=== PATIENT | female | born 1945 | race Caucasian/White ===

== ENCOUNTER 2022-02-28 10:00 | Outpatient (RCR) | payer MEDICARE, SELFPAY ==
--- NOTE | 2022-01-31 10:17 | PTOPEVAL ---
PHYSICAL THERAPY INITIAL EVALUATION. Thank you for referring Malina Amin to [facility].? The patient is scheduled to be seen for therapy? 1 x/week for 4 weeks. Please review, sign, date and return this plan of care RAMA. I agree with and certify that the following plan of care is medically necessary. Referring Physician Date Attending Provider: Tom Sahni MD *PT Outpatient Evaluation Start: 01/31/22 Evaluation Information Diagnosis Osteoarthritis Onset 2 years Subjective Information Pt states she has some pain in Query Text:As Reported By Patient/ her L knee mostly in the back Family and deep. She states one of her doctors told her she has a Dao's cyst and another told her she has osteoporosis. She received an injection from her PCP on 01/22/22 and it has helped a little bit and she has more movement because of less pain. Pt states most of her pain happened when she goes up/down stairs. Pt states she can walk or stand as long as she needs. Her primary complaint is pain on the stairs and not being able to bend it all the way if she has to bend over to pick something up. Pain Assessment Self Report Pain Assessment Left Knee(s) Reported Pain Level 0 Pain Frequency Chronic,Intermittent Lowest Pain Intensity 0 Greatest Pain Intensity 3 Pain Aggravating Factors Bending,Stair Climbing Lower Extremity Range of Motion General Lower Extremity Range of Motion WFL/Left,WFL/Right Knee Range of Motion Right Knee Flexion Range of Motion - Active 136 Knee Extension Range of Motion - Active 0 Left Knee Flexion Range of Motion - Active 116 Knee Extension Range of Motion - Active 0 Lower Extremity Muscle Strength Testing General Lower Extremity Strength WFL/Left,WFL/Right Gross Lower Extremity Strength B LE grossly 4-/5 B hip extension 2/5 L knee extension 3+/5 L knee flexion 4-/5 B glute med 3/5 Muscle Length Testing Left Hamstring Length -38 Right Hamstring Length -40 Gastrocnemius Length (R) WFL,(L) WFL Palpation Assessment Palpation Posterior knee and medial and lateral knee joint line Balance Assess
--- NOTE | 2022-02-14 11:02 | PCPTNOTE ---
Patient called & cancelled scheduled appointment this date. No reason left.
--- NOTE | 2022-02-28 10:33 | PTOPEVAL ---
PHYSICAL THERAPY PROGRESS NOTE AND DISCHARGE REPORT. Thank you for referring Malina Amin to [facility].? The patient is to be discharged from skilled physical therapy services at this time. Please review, sign, date and return this plan of care RAMA. I agree with and certify that the following plan of care is medically necessary. Referring Physician Date Attending Provider: Tom Sahni MD Evaluation Information Diagnosis Osteoarthritis Onset 2 years Subjective Information Pt states her knees are doing Query Text:As Reported By Patient/ much better. She declines pain Family and muscle spasms for at least the last week. Pain Assessment Left Knee(s) Reported Pain Level 0 Greatest Pain Intensity 0 Lower Extremity Range of Motion General Lower Extremity Range of Motion WFL/Left,WFL/Right Knee Range of Motion Right Knee Flexion Range of Motion - Active 136 Knee Extension Range of Motion - Active 0 Left Reason Not Measured Pain Knee Flexion Range of Motion - Active 118 Knee Extension Range of Motion - Active 0 Lower Extremity Muscle Strength Testing General Lower Extremity Strength WFL/Left,WFL/Right Gross Lower Extremity Strength B LE grossly 4/5 B hip extension 4/5 B glute med 3+/5 Muscle Length Testing Muscle Length Testing Left Hamstring Length -38 Right Hamstring Length -40 Gastrocnemius Length (R) WFL,(L) WFL Balance Assessment 5 Time Sit to Stand Time in Seconds 15 Gait Assessment Gait Pattern No Deviations/Normal Other Gait Observations No major gait deviations, slightly increased pelvic rotation during gait PT Clinical Summary Malina presents to therapy today for her progress report following participation in a home exercise program and 3 therapy visits. Today she demonstrates improvements in her LE strength, mechanics and functional mobility. She has been able to return to her daily walking program without an increase in pain. She is to be discharged from skilled physical therapy services at this time to continue with her HEP. She was educated on the benefits of continuing with her HEP even upon discharge,
== END 2022-02-28 15:10 | disposition home or self-care (01) ==
LOC: ANHPT 10:00
PROVIDERS: PCP Internal Medicine; Visit Provider Orthopaedic Surgery
DX: M19.90 Unspecified osteoarthritis, unspecified site (principal)
CPT/HCPCS: 97110; 97112; 97161

== ENCOUNTER → 2022-03-25 07:50 | Outpatient (CLI) | payer MEDICARE, SELFPAY ==
--- NOTE | ~2022-03-25 | MR_ITS ---
EXAMINATION: MR knee LT wo con DATE: 03/25/2022 08:23 INDICATION: Left knee pain TECHNIQUE: Magnetic resonance imaging (MRI) of the left knee was performed without intravenous contra st. Sequences included coronal PD-weighted FSE, coronal PD-weighted FS FSE, sagittal T2-weighted FSE , sagittal PD-weighted FS FSE and axial PD weighted fat saturated FSE. COMPARISON: None. FINDINGS: Medial compartment: Medial meniscal tear with longitudinal horizontal tear plane extending to the inferior articular surf yvonne of the posterior body and posterior horn of the medial meniscus. The tear may be complex with sug gestion of possible radial component to the tear involving the inner half of the meniscal body and an terior aspect of the horizontal tear plane. Partial-thickness cartilage loss with chondral surface ir regularity along the anterior to central weightbearing medial femoral condyle and medial side of the medial tibial plateau. No degenerative subchondral changes. Lateral compartment: Small radial tear involving the inner half of the body of the lateral meniscus. Articular cartilage i s normal. Patellofemoral compartment: Deep chondral ulceration with underlying subarticular edema-like signal change at the cephalad aspect of the patellar apical ridge and caudal half of the lateral trochlea. Additional deep chondral ulcer ation without degenerative subchondral changes at the medial patellar facet and caudal half of the tr ochlear groove. Ligaments and tendons: Anterior and posterior cruciate ligaments are normal. Mild thickening and mild increased signal of th e proximal medial collateral ligament without surrounding edema to suggest acute injury consistent wi th mild scarring related to chronic sprain. The fibular collateral ligament is normal. Mild tendinopa thy at the femoral insertion of the popliteus tendon. Mild distal quadriceps tendinopathy without dis crete tear. Patellar tendon is normal. The visualized medial and lateral hamstring tendons as well as the iliotibial band are normal. Fluid: Physiologic amount of fluid in the joint space. No loose osteochondral bodies identified. Multilocula marisol ganglion cyst at the deep popliteal recess along the posterior margin of the posterior cruciate l igament which measures 3.9 cm craniocaudally by 2.0 x 2.3 cm in maximal orthogonal dimensions. Osseous/other: Likely degenerative mild cystic change at the posterior aspect of the intercondylar eminence near the insertion of the posterior cruciate ligament and posterior root of the lateral meniscus. Aside from the previous noted degenerative subchondral edema there is normal marrow signal with no fracture or p athologic marrow replacing process. No fracture or pathologic marrow replacing process. IMPRESSION: 1. Likely complex tear at the body and posterior horn of the medial meniscus and small radial tear at the body of the lateral meniscus. 2. Mild tricompartmental osteoarthritis with moderate grade chondromalacia in the medial compartment and moderate and high-grade chondromalacia in the patellofemoral compartment. 3. 3.9 x 2.0 x 2.3 cm multiloculated ganglion cyst at the deep popliteal recess. 4. Mild quadriceps and popliteal tendinopathy without discrete tears. 5. Mild scarring at the proximal medial collateral ligament likely sequela of chronic sprain. Reviewed, dictated and finalized at location A. IMPRESSION: 1. Likely complex tear at the body and posterior horn of the medial meniscus an d small radial tear at the body of the lateral meniscus. 2. Mild tricompartmental osteoarthritis with moderate grade chondromalacia in t he medial compartment and moderate and high-grade chondromalacia in the patello femoral compartment. 3. 3.9 x 2.0 x 2.3 cm mu
== END ==
PROVIDERS: PCP Internal Medicine; Visit Provider Orthopaedic Surgery
DX: M17.12 Unilateral primary osteoarthritis, left knee (principal); S83.282A Other tear of lateral meniscus, current injury, left knee, initial encounter; S83.242A Other tear of medial meniscus, current injury, left knee, initial encounter; M25.862 Other specified joint disorders, left knee
CPT/HCPCS: 73721

== ENCOUNTER 2022-04-22 07:47 | Outpatient (CLI) | payer MEDICARE, SELFPAY ==
--- NOTE | 2022-04-22 07:55 | ECG_ITS ---
Measurements Intervals [place] Rate: 64 P: 35 NE: 181 QRS: 45 QRSD: 89 T: 63 QT: 389 QTc: 404 Interpretive Statements SINUS RHYTHM ST-T ABNORMALITY-CONSIDER ISCHEMIA Electronically Signed On 04-22-2022 11:15:12 CDT by Hermelindo Pham M.D.
[2022-04-22 10:38] LABS: Anion Gap 7 mmol/L (8-16); Blood Urea Nitrogen 16 mg/dL (7-17); Calcium 9.4 mg/dL (8.4-10.2); Carbon Dioxide 27 mmol/L (22-30); Chloride 105 mmol/L (98-107); Estimated Glomerular Filt Rate 54; Glucose 111 mg/dL (65-110); Potassium 3.4 mmol/L (3.4-5.0); Sodium 139 mmol/L (137-145)
== END 2022-04-22 07:48 | disposition home or self-care (01) ==
PROVIDERS: Anesthesiology; PCP Internal Medicine; Visit Provider Orthopaedic Surgery
DX: Z01.818 Encounter for other preprocedural examination (principal); I10 Essential (primary) hypertension; Z51.81 Encounter for therapeutic drug level monitoring
CPT/HCPCS: 36415; 80048; 93005

== ENCOUNTER 2022-05-06 00:22 | Day surgery (SDC) | payer MEDICARE, SELFPAY ==
[2022-04-18 14:00] VITALS: BMI 22.8
--- NOTE | 2022-04-18 14:25 | PC.NURSE ---
Report to the Outpatient Waiting Room, entrance under the green pavilion located off [facility], at time __8:30AM on date _04/28/22 . OR Time: __10:30AM . - You and your visitor will be asked a series of questions to screen for COVID 19 for your protection. - Only one visitor is allowed at this time. - The patient visitor is requested to leave or wait in car when not with patient. - A mask is required within the hospital. Patients may have clear liquids (water, carbonated beverages, clear teas, apple juice) until 3 hours prior to surgery with a maximum of 20 ounces. - No food from midnight until time of surgery - Infants may have breast milk until 4 hours before surgery, infant formula 6 hours prior to surgery. - Children will be allowed to drink immediately following surgery. If applicable, please bring a bottle or sippy cup to assist with drinking. Juice, water, soda, and popsicles are readily available. For infants on formula, please bring formula the day of surgery. Pacifiers are allowed. Take the following medications with a SIP of water the morning of surgery: ____NONE Medications to discontinue per physician __HOLD ALL VITAMINS/SUPPLEMENTS 3 DAYS PRE-OP Date to take last dose____04/24/22 Please no make-up, nail malian, hairspray, perfume, deodorant, or body powder the day of surgery. No jewelry (including any body piercings) or valuables the day of surgery, leave them at home. Please take a shower or bath the night before, or the morning of, surgery with an antibacterial soap. Wear comfortable, loose fitting clothing. Children are encouraged to wear pajamas. - Jewelry must be removed prior to entering the operating room. Rings and piercings that are not removed may be cut off. - The hospital will not accept responsibility for valuables. - Please leave all valuables, including medications, at home the day of surgery. If you are going home after surgery, a licensed transport truck driver must drive you home. - NO public transportation without another adult. - We recommend that an adult stay with you for 24 hours following discharge. - We also recommend that you do not drive, make important decision, drink alcoholic beverages, or take any drugs that were not prescribed by your health care provider for at least 24 hours after your discharge time. For Pediatric surgeries, we recommend two adults accompany the child home (only one inside the building at this time). Follow any additional instructions given to you from your surgeon. If you or anyone in your household have experienced Covid symptoms in the past week, please notify your surgeon or the nurse liaison at the phone number below for possible testing. Telephone instructions given to __PATIENT and asked if any additional questions and then verbalized understanding. Patient advised to call surgeon office or pre surgery nurse liaison [phone] if any additional questions.
--- NOTE | 2022-05-01 13:49 | PC.NURSE ---
Report to the Outpatient Waiting Room, entrance under the green pavilion located off [facility], at time _8:30AM on date __05/06/22 . OR Time: __10:30AM . - You and your visitor will be asked a series of questions to screen for COVID 19 for your protection. - Only one visitor is allowed at this time. - The patient visitor is requested to leave or wait in car when not with patient. - A mask is required within the hospital. Patients may have clear liquids (water, carbonated beverages, clear teas, apple juice) until 3 hours prior to surgery with a maximum of 20 ounces. - No food from midnight until time of surgery - Infants may have breast milk until 4 hours before surgery, infant formula 6 hours prior to surgery. - Children will be allowed to drink immediately following surgery. If applicable, please bring a bottle or sippy cup to assist with drinking. Juice, water, soda, and popsicles are readily available. For infants on formula, please bring formula the day of surgery. Pacifiers are allowed. Take the following medications with a SIP of water the morning of surgery: ___NONE Medications to discontinue per physician ____HOLD ALL VITAMINS/SUPPLEMENTS 3 DAYS PRE-OP Date to take last dose__05/02/22 Please no make-up, nail setswana, hairspray, perfume, deodorant, or body powder the day of surgery. No jewelry (including any body piercings) or valuables the day of surgery, leave them at home. Please take a shower or bath the night before, or the morning of, surgery with an antibacterial soap. Wear comfortable, loose fitting clothing. Children are encouraged to wear pajamas. - Jewelry must be removed prior to entering the operating room. Rings and piercings that are not removed may be cut off. - The hospital will not accept responsibility for valuables. - Please leave all valuables, including medications, at home the day of surgery. If you are going home after surgery, a licensed ambulette driver must drive you home. - NO public transportation without another adult. - We recommend that an adult stay with you for 24 hours following discharge. - We also recommend that you do not drive, make important decision, drink alcoholic beverages, or take any drugs that were not prescribed by your health care provider for at least 24 hours after your discharge time. For Pediatric surgeries, we recommend two adults accompany the child home (only one inside the building at this time). Follow any additional instructions given to you from your surgeon. If you or anyone in your household have experienced Covid symptoms in the past week, please notify your surgeon or the nurse liaison at the phone number below for possible testing. Telephone instructions given to __PATIENT and asked if any additional questions and then verbalized understanding. Patient advised to call surgeon office or pre surgery nurse liaison [phone] if any additional questions.
--- NOTE | 2022-05-05 12:34 | WPDANESEPPF ---
Anes - Initial Pre Proc Eval Procedure: Operation Date: 05/06/22 10:30 Proposed Procedures p Left Knee Arthroscopy with Meniscectomy, Proceed as Indicated - Tom Sahni MD Date/Time: 05/05/22 12:34 Surgeon: Tom Sahni MD Pre Op Diagnosis: left knee medial meniscal tear Patient Data Age: 76 Gender: F Height: 1.7 m Weight: 66 kg Allergies Allergy/AdvReac Type Severity Reaction Status Date / Time codeine Allergy Intermediate Chest Pain Verified 05/06/22 09:28 Home Medications Medication Instructions Recorded Confirmed Type alendronate 70 mg tablet (Fosamax) 70 mg PO WEEKLY 01/22/22 05/01/22 History atorvastatin 40 mg tablet 40 mg PO DAILY 01/22/22 05/01/22 History hydrochlorothiazide 12.5 mg tablet 12.5 mg PO HS 01/22/22 05/01/22 History lisinopril 40 mg tablet 40 mg PO HS 01/22/22 05/01/22 History cetirizine 10 mg tablet (Zyrtec) 10 mg PO DAILY PRN Congestion 03/13/22 05/01/22 History calcium carbonate 600 mg-vitamin 2 tablet PO DAILY 04/18/22 05/01/22 History D3 5 mcg (200 unit) tablet cyanocobalamin (vitamin B-12) 1,000 mcg subcut MONTHLY 04/18/22 05/01/22 History 1,000 mcg/mL injection solution Patient hx anesthesia problems: none Family hx anesthesia problems: none Results Review: All pre-operative results and documents have been reviewed as part of the pre-operative evaluation. [facility] Past Medical History Medical History (Updated 05/05/22 @ 12:34 by Jay Grace DO) Allergies Anemia History of trigger finger Hyperlipidemia Hypertension Left knee pain Osteoporosis Tear of medial meniscus of left knee Surgical History Surgical History (Updated 05/05/22 @ 12:34 by Jay Grace DO) History of tubal ligation Family History Family History Sibling Diabetes mellitus Family history of malignant neoplasm Social History Social History Smoking packs per day: 1 Smoking cigarettes per day: 20.0 Years smoked: 60 Smoking pack-years: 60.00 Smoking status: Current every day smoker Tobacco type: cigarettes Additional smoking assessment comments: REDUCING SMOKING TO 1/2 PACK/DAY RECENTLY Alcohol intake: never Substance use: never Living arrangements: with family Additional living arrangements comments: HUSB, DAUGHTER AND GRANDCHILDREN Spiritual care concerns: No Anes - Eval Final PreProcedure Day of Procedure 05/05/22 12:34 Patient weight: normal Heart: regular rate and rhythm Lungs: clear to auscultation Airway: Mallampati scale class II Neurological: alert and oriented Last oral intake: >/= 8 hours ASA classification: III Emergent: no Anesthetic plan: proceed Anesthesia type and monitoring: general LMA and standard monitoring Results Review: All pre-operative results and documents have been reviewed as part of the pre-operative evaluation. Informed Consent: The patient's anesthetic plan and its attendant risks and benefits were discussed with the patient/family/POA. Questions were solicited and answers provided to the satisfaction of the patient/family/POA.
[2022-05-06] VITALS (10 sets, daily range): BP systolic 100–162; BP diastolic 58–73; PULSE 64–91; RESP 16–20; TEMP 36.6–36.8; O2SAT 93–100
[2022-05-06] MEDS: LACTATED RINGERS 1,000 ML 30 ML IV CONT (09:00)
[2022-05-06] MEDS: KETOROLAC 15 MG/ML VIAL (*BKC) IV PUSH (09:00)
[2022-05-06] MEDS: ACETAMINOPHEN 500 MG TABLET 1000 MG PO (09:00)
--- NOTE | 2022-05-06 09:49 | WPDHPUPDATE1 ---
History and Physical Update Update Date/Time: 05/06/22 09:49 History and Physical has been reviewed, including an updated exam of the patient. There are NO changes in the patient's condition. Risks, benefits, and alternatives have been discussed and questions answered. Patient agrees to proceed with procedure.
[2022-05-06] MEDS: ceFAZolin 2 GM/D5W 50 ML 2 GM/50 ML BAG IVPB (10:44)
--- NOTE | 2022-05-06 12:03 | W.PM.PROC2 ---
Procedure Note - Detailed Date of Procedure 05/06/22 Pre-op Diagnosis left knee medial meniscal tear with synovial cysts Post-op Diagnosis Other (Medial and lateral meniscal tears with synovial cysts) Procedure Performed Left knee arthroscopy, partial mediolateral meniscectomy and extensive synovectomy Surgeon Tom Sahni MD Anesthesia General Description of Procedure The patient was identified and proper site identified and then she was taken to the operating room, transferred to the OR table placing her supine taking care to pad the torso and extremities. After general anesthetic induction and intubation, a nonsterile tourniquet was placed high on the left thigh but was not used The left lower extremity was positioned, prepped and draped in usual sterile fashion. 10 cc of 1% lidocaine was injected into the subcutaneous tissue in the area of the portals at start of the procedure, and an additional 10 at the end. The portals were established and the arthroscopy was carried out. Articular cartilage in all three compartments showed grade 2 changes with fraying, most pronounced medially. There was complex tearing of the medial meniscus posterior horn into the midbody as well as the central portion of the lateral meniscus. These areas were debrided with basket forceps and a shaver back to stable rim. In the notch there were multilobulated synovial cyst adjacent to the lateral wall which were freely mobile. These were debrided with the shaver. 70 degree scope was placed past the notch to examine the posteromedial posterolateral aspects of the knee and other than mild synovitis these areas were fairly clear. ArthroCare Wand was used for hemostasis. The knee was flushed with a copious amount of arthroscopic fluid and equipment was removed. Portals were closed with three O nylon suture and a sterile dressing was applied. She tolerated the procedure well, was awakened, extubated and taken to recovery area in stable condition. There were no known intraoperative complications. Estimated blood loss was negligible; she received perioperative antibiotics. Estimated Blood Loss -20.0 Tourniquet Time 0 Drains No Packing No Pathology None sent Complications No immediate complications Condition Stable Disposition PACU
--- NOTE | 2022-05-06 12:06 | SUR.PHASEI ---
oral airway removed at 1206
[2022-05-06] MEDS: traMADol HCL (*CRX) 50 MG TABLET PO (13:20)
== END 2022-05-06 14:05 | disposition home or self-care (01) ==
PROVIDERS: PCP Internal Medicine; Visit Provider Orthopaedic Surgery
PROC: (CPT 29870; principal; 2022-05-06 10:30)
DX: M23.322 Other meniscus derangements, posterior horn of medial meniscus, left knee (principal); M23.362 Other meniscus derangements, other lateral meniscus, left knee; M65.862 Other synovitis and tenosynovitis, left lower leg; I10 Essential (primary) hypertension; E78.5 Hyperlipidemia, unspecified; M81.0 Age-related osteoporosis without current pathological fracture; F17.210 Nicotine dependence, cigarettes, uncomplicated
CPT/HCPCS: 29880; 36415; 80048; 93005; A9270; J0690; J1100; J1885; J2405; J2704; J3010; J7120

== ENCOUNTER 2022-06-04 15:30 | Outpatient (RCR) | payer MEDICARE, SELFPAY ==
--- NOTE | 2022-05-09 09:45 | PTOPEVAL ---
PHYSICAL THERAPY INITIAL EVALUATION. Thank you for referring Malina Amin to [facility].? The patient is scheduled to be seen for therapy? 2x/week for 4 weeks. Please review, sign, date and return this plan of care RAMA. I agree with and certify that the following plan of care is medically necessary. Referring Physician Date Attending Provider: Tom Sahni MD *PT Outpatient Evaluation Start: 05/09/22 Evaluation Information Diagnosis L knee arthroscope Onset 05/06/22 Subjective Information Pt states she had a knee scope Query Text:As Reported By Patient/ on 05/06, she reports she used Family the walker for 3 days and stopped using it yesterday. She states her pain is well controlled. She reports she has been icing her knee frequently. Pain Assessment Left Knee(s) Reported Pain Level 3 Pain Frequency Acute,Intermittent Greatest Pain Intensity 3 Lower Extremity Range of Motion Gross Lower Extremity Range of Motion R knee active flexion 0-140 Comments L knee active extension -8 L knee active flexion 82 L knee passive flexion 95 Lower Extremity Muscle Strength Testing General Lower Extremity Strength Gross Lower Extremity Strength R LE grossly 4+/5 L knee long arc quad: -28 deg knee extension lag Palpation Assessment Palpation distal quad Balance Assessment Timed Up and Go Test (TUG) (Seconds) 11 Assistive Devices None 5 Time Sit to Stand Time in Seconds 15 5 Time Sit to Stand Comments without use of UEs, LLE placed anteriorly Gait Assessment Ambulation Assistive Devices None Gait Pattern Ataxic Gait,Circumducted Gait Gait Pattern Observed Decreased Weight Shift - Left, Hip Hike - Left Other Gait Observations decreased knee flexion on L with subsequent L hip hike and mild hip circumduction 2 Minute Walk Total Distance Walked (feet) 410 2 Minute Walk Gait Speed Score (feet/sec) 3.41 Stair Climbing Assessment Stair Climbing Assistive Devices Railings Technique Alternating Steps Stair Climbing Direction Both Up and Down Stair Climbing Comments ascends and descend with a reciprocal pattern. Demonstrates L LE circumduction during ascend and L hip IR during descent ( slightly sidewa
--- NOTE | 2022-06-02 09:20 | PCPTNOTE ---
Patient called & cancelled scheduled appointment this date due to being sick.
--- NOTE | 2022-06-04 15:59 | PTOPEVAL ---
PHYSICAL THERAPY PROGRESS REPORT AND DISCHARGE SUMMARY. Thank you for referring Malina Amin to [facility].? The patient is to be discharged from skilled therapy services at this time. Please review, sign, date and return this plan of care RAMA. I agree with and certify that the following plan of care is medically necessary. Referring Physician Date Attending Provider: Tom Sahni MD Evaluation Information Diagnosis L knee arthroscope Onset 05/06/22 Subjective Information Pt states her knee is doing Query Text:As Reported By Patient/ great. She states the only Family time she can feel it is when she kneels on the ground. Pt states she is not limited in her ability to sit or walk d/t her knee. Pain Assessment Left Knee(s) Reported Pain Level 0 Greatest Pain Intensity 0 Lower Extremity Range of Motion Gross Lower Extremity Range of Motion R knee active flexion 0-140 Comments L knee active extension 0 L knee active flexion 114 L knee passive flexion 125 Lower Extremity Muscle Strength Testing Gross Lower Extremity Strength R LE grossly 4+/5 L knee long arc quad: -4 deg knee extension lag L knee flexion/extension 4/5 Palpation Assessment Palpation distal quad Balance Assessment Timed Up and Go Test (TUG) (Seconds) 9 Assistive Devices None Comments Initially: 11s without AD 06/04/22: 9s without AD 5 Time Sit to Stand Time in Seconds 15 5 Time Sit to Stand Comments Initially: 15s without use of Query Text:Normative Data: If Greater UEs, LLE placed anteriorly Than 15 Seconds, 74% Increase Risk for 06/04/22: 15s without the use Recurrent Falls of UEs, equal weight distribution Gait Assessment Ambulation Assistive Devices None Other Gait Observations equal weight distribution, step length, and stride length 2 Minute Walk 2 Minute Walk Test Comments Initially: 410ft (3.41ft/s) without AD 06/04/22: 485 (4.04ft/s) without AD Stair Climbing Assessment Technique Alternating Steps Stair Climbing Direction Both Up and Down Stair Climbing Comments ascends and descends with proper technique of reciprocal pattern, mild hip ext rot when reaching for lower step Safety Assessment Factors Affecting Safety No Concerns
== END 2022-06-05 10:37 | disposition home or self-care (01) ==
LOC: ANHPT 15:30
PROVIDERS: PCP Internal Medicine; Visit Provider Orthopaedic Surgery
DX: Z48.89 Encounter for other specified surgical aftercare (principal); Z98.890 Other specified postprocedural states
CPT/HCPCS: 97110; 97161; 97530

== ENCOUNTER 2024-12-23 09:00 | Outpatient (CLI) | payer MEDICARE, SELFPAY ==
--- OUTSIDE RECORDS SUMMARY | 2024-12-23 09:22 | XMS_ITS | CONTINUITY OF CARE DOCUMENT ---
Author Name bennie avery Address Unknown Organization [facility] Address [address] [place] [address] Phone [phone] Care Team Providers Care Global Transportation Manager Name Role Phone Brant Welsh MD Unavailable POLLO PARIS MD Unavailable POLLO PARIS MD Unavailable [phone] PROBLEMS Condition Status Date Provider Notes Cardiology examination active Brant Welsh MD HYPERTENSION active Brant Welsh MD Hyperlipidemia active Brant Welsh MD Leg pain active Brant Welsh MD Osteoporosis active Brant Welsh MD Abnormal EKG active Brant Welsh MD Preoperative cardiovascular examination active Brant Welsh MD ENCOUNTERS Date Type Provider Location Encounter Diag nosis - In-person encounter Office Visit Brant Welsh MD [facility] Cardiology examinationHYPERTENSIONHyperlipidemiaLeg painOsteoporosisAbnormal EKGPreoperative cardiovascular examination VITAL SIGNS Date Observation Value Provider Body Mass Index (Ratio) 23.18 kg/m2 Colton Welsh MD blood pressure, cuff size regular Ke rri Petar blood pressure, diastolic 70 mm[Hg] Ke rri Petar blood pressure, systolic 142 mm[Hg] Hernandez Davey oxygen saturation, oximetry 96 % Honey Davey respiratory rate E&M 16 /min Honey Emeka luis pulse rate 70 /min Honey Morocho lder weight E&M 148 [lb_av] Honey Rashawn lder height E&M 67 [in_i] Honey dotsoner ALLERGIES Allergy Name Onset Date Reaction Criticality Status CODIENE High Criticality active HISTORY OF MEDICATION USE Medication Status Instructions Dates Provider Indications Com ments alendronate 70 mg tablet active Take 1 tablet by mouth once a week Honey Davey atorvastatin 40 mg tablet active Take 1 tablet by mouth once a day Honey Davey cyanocobalamin (vitamin B-12) 1,000 mcg/mL solution active Inject 1 ml intramuscularly every four weeks Honey Davey hydrochlorothiazide 12.5 mg capsule active Take 1 capsule by mouth once a day Honey Davey lisinopril 40 mg tablet active Take 1 tablet by mouth once a day Honey Davey SOCIAL HISTORY Date Observation Value Provider drug use no Brant Welsh MD alcohol use no Brant Welsh MD social history E&M S moking History: P atient currently smokes every day. P atient has been counseled to quit. Brant Welsh MD social history reviewed E&M revi ewed - no changes required Brant Welsh MD smoking/tobacco cess ation, patient education and counseling yes Brant Welsh MD number of years as a smoker 60 a Honey Davey smoking history, tot al pack/day 1/2 ppd Honey Davey cigarette use yes Honey salmon smoking status Current every day smoker K felix Davey INSURANCE PROVIDERS Payer name Policy type / Coverage type [employer] party ID [facility] MEDICARE COMPLETE HMO Other [id number] ADVANCE DIRECTIVES Name Date DISCUSSED - NO DECISION MADE TREATMENT PLAN Date Name Performer [id number],C, B P today: 142/70 Brant Welsh MD [id number],C,S chedule echo. Surgery scheduled for 05/05/22 Brant Welsh MD [id number],C,N on-specific STT wave changes. I think at this point I would just get an echo to make sure there are no wall motion abnormalities, but she should be able to proceed with artroscopic surgery. Brant Welsh MD Cardiology: B P today: 142/70 Brant Welsh MD Cardiology:Schedule echo. Surger y scheduled for 05/05/22 Brant Welsh MD Cardiology:Non-speci fic STT wave changes. I think at this point I would just get an echo to make sure there are no wall motion abnormalities, but she should be able to proceed with artroscopic surgery. Brant Welsh MD Date Name Complete Echo HISTORY OF PROCEDURES Procedure Date Procedure Name Provider Procedure Notes S tatus EKG Brant Welsh MD completed
--- OUTSIDE RECORDS SUMMARY | 2024-12-23 09:22 | XMS_ITS | Clinical Summary ---
Author Organization [facility] Address [address] [place] [address] Care Team Providers Care Net Wpf Developer Name Role Phone Unavailable Primary Care Provider Unavailabl e Immunizations Immunization Administration Dates Next Due Covid-19, Mrna, Lnp-s, Pf, 30 Mcg/0.3 Ml Dose (P fizer) 08/14/2021 Social History Tobacco Use Types Packs/Day Years Used Date Smoking Tobacco: Never Assessed Comments Unknown Sex and Gender Information Value Date Recorded Sex Assigned at Not on file Legal Sex Female 11:30 AM CDT Gender Identity Not on file Sexual Orientation Not on file Plan of Treatment Health Maintenance Due Date Last Done Comments DEXA Bone Density 1945 Hepatitis C Virus (HCV) Screening 1945 TdaP Immunization 1945 Pneumococcal Immunization (50+ years) (1 of 1 - PCV) 1996 Respiratory Syncytial Virus (RSV) Immunization (Adult) (1 - 1-dose 75+ series) 2021 Influenza Immunization (#1) 2024 09/0 05/2021, 08/11/2017, 07/31/2016, Additional history exists SARS-COV-2 Immunization ( season) 2024 08/14/2021, 02/06/2021 Zoster Immunization Completed 04/10/2018, 01/11/2018, 10/14/2013 Hepatitis B Immunization Aged Out No longer eligible based on patient's age to complete this topic Meningococcal Immunization (ACWY) Aged Out No longer eligible based on patient's age to complete this topic Rotavirus Immunization Aged Out No lo nger eligible based on patient's age to complete this topic
--- OUTSIDE RECORDS SUMMARY | 2024-12-23 09:22 | XMS_ITS | Data Portability ---
Author Organization [facility] [employer], Main Office Address [address] [place] [address] Care Team Providers Care Lead Solutions Architect Name Role Phone POLLO READ Primary Care Provider RAINA POLLO Referring Provider Assessment No assessment recorded. Plan of Treatment Reminders Order Date Submit Date Provider Last Modified By Organization Details Last Modified Time Details Appointments None recorded. Lab vitamin D, 25-hydroxy, total, serum 2022 023 [email or web address] [facility] Out[facility] Lab, [address] [place], [address], 3 09:52:09 lipid panel, serum 2022 023 [facility] Outpatient Lab, [address] [place], [address], 3 14:52:08 TSH, serum or plasma 2022 023 [facility] Out[facility] Lab, [address] [place], [address], 3 15:20:28 T4, free, serum 2022 023 [facility] Out[facility] Lab, [address] [place], [address], 3 15:04:31 CBC w/ auto diff 2022 023 [facility] Lab, [address] [place], [address], 3 14:49:48 CMP, serum or plasma 2022 023 [facility] Lab, [address] [place], [address], 3 14:52:04 vitamin B12, serum 2022 023 [facility] Lab, [address] [place], [address], 3 15:43:01 CBC w/ auto diff 2023 024 [facility] Out[facility] Lab, [address] [place], [address], 4 17:14:48 CMP, serum or plasma 2023 024 [facility] Out[facility] Lab, [address] [place], [address], 4 17:49:12 lipid panel, serum 2023 024 [facility] Out[facility] Lab, [address] [place], [address], 4 17:49:15 TSH, serum or plasma 2023 024 [facility] Lab, [address] [place], [address], 4 18:12:07 T4, free, serum 2023 024 [facility] Out[facility] Lab, [address] [place], [address], 4 18:06:50 vitamin B12, serum [address] Outpatient Lab, [address] [place], [address], 5 11:22:42 lipid panel, serum [address] Outpatient Lab, [address] [place], [address], 5 11:22:41 CMP, serum or plasma [address] Outpatient Lab, [address] [place], [address], 5 11:22:41 T4, free, serum [address] Outpatient Lab, [address] [place], [address], 5 11:22:41 TSH, serum or plasma [address] Lab, [address] [place], [address], 5 11:22:42 CBC w/ auto diff [address] Lab, [address] [place], [address], 5 11:22:42 Referral None recorded. Procedures None recorded. Surgeries None recorded. Imaging None recorded. Medication Orders benzonatate 200 mg capsule [email or web address] [place] [address] Pharmacy [facility], [address] [place] [address], [address], 5 11:12:20 amoxicillin 500 mg capsule 2024 025 [facility], [address] [place] [address], [address], 5 11:18:10 Patient TargetsNo targets recorded. Patient Instructions Encounter Date Encounter Id Patient Instructions Last Modified By Organization Details Last Modified Time 02/25/2023 [id number] Follow-up hypertension-hyper lipidemia- peripheral vascular disease- cirrhosis -neuropathy. All clinically stable. Will check blood work in the form of CBC, CMP, lipid, thyroid and B12 level. Will also check a vitamin-D level because of the history of osteoporosis. Otherwise seems to be doing well. Will continue on current Rx. Has several skin lesions which may have changed somewhat in color. She has a number of seborrheic changes noted. Will set up with Dermatology for further evaluation of the any skin lesions. Dermatology consult for multiple pigmented lesion [email or web address] Not available 02/25/2023 11:33:40 06/24/2023 [id number] Follow-up hypertension -hyperlipidemia -peripheral vascular disease all clinically stable. Will need blood work on next visit. Does need a low-dose CT scan of the chest. Is up-to-date on immunizations and colonoscopy. Follow-up in six months Low-dose CT scan of the chest [email or web address] Not available 06/24/2023 11:49:24 12/23/2023 [id number] Follow-up hypertension, hyperlipidemia and peripheral vascular disease all clinically stable. No interval complaints of any new problems. Check blood work in the form of CBC, CMP, lipid, thyroid and vitamin-D level. Continue on current Rx follow-up in six months. Portions of the record may have been created with voice recognition software. Occasional wrong-word or s ound-a-like substitutions may have occurred due to the inherent limitations of voice recognition software. Read the chart carefully and recognize, using context, where substitutions have occurred. [email or web address] Not available 12/23/2023 11:28:00 06/22/2024 [id number] Follow-up for hypertension, hyperlipidemia, osteoporosis all clinically stable. Will check blood work consisting of CBC, CMP, lipid, thyroid. Continue on current Rx follow-up in six months Additional Orders and/or Directives: 1. Bone density scan 2. Mammogram Next Appointment: 6 Months Approximate Date: 12/19/2024 Portions of the record may have been created with voice recognition software. Occasional wrong-word or s ound-a-like substitutions may have occurred due to the inherent limitations of voice recognition software. Read the chart carefully and recognize, using context, where substitutions have occurred. [email or web address] Not available 06/22/2024 11:49:26 12/21/2024 [id number] Essential hypertension, hyperlipidemia, pernicious anemia, osteoporosis and acute sinusitis. Plan to obtain blood work consisting of CBC, CMP, lipid, thyroid, B12 level. Will call in some amoxicillin 500 mg t.i.d. For the sinus congestion infection. If no improvement may need ENT referral. States that she has had some problems with tinnitus intermittently. Her ears. To be fairly clear. There is no evidence any significant cerumen impaction. If this does not improve may need an audiogram and further evaluation. Follow-up in six months Follow Up: 6 Months Approximate Date: 06/19/2025 Portions of record are template driven. When necessary additional context will be provided. Additionally some portions have been created with voice recognition software. Occasional wrong-word or s ound-a-like substitutions may have occurred due to the inherent limitations of voice recognition software. Read the chart carefully and recognize, using context, where substitutions may have occurred. Created: oPllo Read M.D. 12.21.2024 10:17 AM [email or web address] Not available 12/21/2024 11:18:00 Reason for Referral None Reported. Results Created Date Observation Date Name Description Value Unit Range Abnormal Flag Note LastModifiedBy Organization Detail LastModifiedTime 02/26/2002/25/2023 CBC/C OMPLE TE BLD COUNT W/DIF F white blood cells 6.2 x10'3 /uL 4.2-10 .8 Not Available [facility] (Lab) [address] [place], [address], 02/25/2023 14:49:48 02/26/20 23 02/25/2023 CBC/C OMPLE TE BLD COUNT W/DIF F red blood cells 4.32 x10'6 /uL 3.80-5 .20 Not Available [facility] (Lab) [address] [place], [address], 02/25/2023 14:49:48 02/26/20 23 02/25/2023 CBC/C OMPLE TE BLD COUNT W/DIF F hemoglobin 12.5 g/dL 12.0-1 5.6 Not Available [facility] (Lab) [address] [place], [address], 02/25/2023 14:49:48 02/26/20 23 02/25/2023 CBC/C OMPLE TE BLD COUNT W/DIF F hematocrit 39.4 % 35.7-4 5.7 Not Available [facility] (Lab) [address] [place], [address], 02/25/2023 14:49:48 02/26/20 23 02/25/2023 CBC/C OMPLE TE BLD COUNT W/DIF F mean red cell volume 91.2 fL 82.0-9 9.0 Not Available [facility] (Lab) [address] [place], [address], 02/25/2023 14:49:48 02/26/20 23 02/25/2023 CBC/C OMPLE TE BLD COUNT W/DIF F mean red cell hemoglobin 28.9 pg 27.0-3 3.0 Not Available [facility] (Lab) [address] [place], [address], 02/25/2023 14:49:48 02/26/2002/25/2023 CBC/C OMPLE TE BLD COUNT W/DIF F mean RBC HGB concentratio n 31.7 g/dL 31.0-3 6.0 Not Available [facility] (Lab) [address] [place], [address], 02/25/2023 14:49:48 02/26/2002/25/2023 CBC/C OMPLE TE BLD COUNT W/DIF F red cell distribution width 12.8 % 11.8-1 5.5 Not Available [facility] (Lab) [address] [place], [address], 02/25/2023 14:49:48 02/26/2002/25/2023 CBC/C OMPLE TE BLD COUNT W/DIF F platelets 392 x10'3 /uL 150-40 0 Not Available [facility] (Lab) [address] [place], [address], 02/25/2023 14:49:48 02/26/2002/25/2023 CBC/C OMPLE TE BLD COUNT W/DIF F mean platelet volume 11.7 fL 9.0-12 .4 Not Available [facility] (Lab) [address] [place], [address], 02/25/2023 14:49:48 02/26/20 23 02/25/2023 CBC/C OMPLE TE BLD COUNT W/DIF F neutrophils 57.8 % 39.0-7 2.0 Not Available [facility] (Lab) [address] [place], [address], 02/25/2023 14:49:48 02/26/2002/25/2023 CBC/C OMPLE TE BLD COUNT W/DIF F lymphocytes 29.9 % 16.0-4 7.0 Not Available [facility] (Lab) [address] [place], [address], 02/25/2023 14:49:48 02/26/2002/25/2023 CBC/C OMPLE TE BLD COUNT W/DIF F monocytes 8.4 % 5.0-12 .0 Not Available [facility] (Lab) [address] [place], [address], 02/25/2023 14:49:48 02/26/2002/25/2023 CBC/C OMPLE TE BLD COUNT W/DIF F eosinophils 2.1 % 1.0-7. 0 Not Available [facility] (Lab) [address] [place], [address], 02/25/2023 14:49:48 02/26/2002/25/2023 CBC/C OMPLE TE BLD COUNT W/DIF F basophils 1.5 % 0.0-2. 0 Not Available [facility] (Lab) [address] [place], [address], 02/25/2023 14:49:48 02/26/20 23 02/25/2023 CBC/C OMPLE TE BLD COUNT W/DIF F immature granulocytes 0.3 % 0.00-0 .50 Not Available [facility] (Lab) [address] [place], [address], 02/25/2023 14:49:48 02/26/20 23 02/25/2023 CBC/C OMPLE TE BLD COUNT W/DIF F neutrophils, absolute count 3.56 x10'3 /uL 1.5-8. 0 Not Available [facility] (Lab) [address] [place], [address], 02/25/2023 14:49:48 02/26/20 23 02/25/2023 CBC/C OMPLE TE BLD COUNT W/DIF F lymphocytes, absolute count 1.84 x10'3 /uL 1.07-3 .43 Not Available [facility] (Lab) [address] [place], [address], 02/25/2023 14:49:48 02/26/20 23 02/25/2023 CBC/C OMPLE TE BLD COUNT W/DIF F monocytes, absolute count 0.52 x10'3 /uL 0.29-0 .99 Not Available [facility] (Lab) [address] [place], [address], 02/25/2023 14:49:48 02/26/20 23 02/25/2023 CBC/C OMPLE TE BLD COUNT W/DIF F eosinophils, absolute count 0.13 x10'3 /uL 0.02-0 .53 Not Available [facility] (Lab) [address] [place], [address], 02/25/2023 14:49:48 02/26/20 23 02/25/2023 CBC/C OMPLE TE BLD COUNT W/DIF F basophils, absolute count 0.09 x10'3 /uL 0.01-0 .08 high Not Available [facility] (Lab) [address] [place], [address], 02/25/2023 14:49:48 02/26/20 23 02/25/2023 CBC/C OMPLE TE BLD COUNT W/DIF F immature granulocytes ,absolute 0.02 x10'3 /uL 0.00-0 .05 Not Available [facility] (Lab) [address] [place], [address], 02/25/2023 14:49:48 02/26/20 23 02/25/2023 CBC/C OMPLE TE BLD COUNT W/DIF F nucleated red blood cells 0.0 % -0 Not Available [facility] (Lab) [address] [place], [address], 02/25/2023 14:49:48 02/26/20 23 02/25/2023 CBC/C OMPLE TE BLD COUNT W/DIF F NRBC# 0.00 x10'3 /uL Not Available [facility] (Lab) [address] [place], [address], 02/25/2023 14:49:48 02/26/20 23 02/25/2023 COMPR EHENS GRACIELA METAB OLIC PANEL sodium 141 mmol/ L 137-14 5 Not Available [facility] (Lab) [address] [place], [address], 02/25/2023 14:52:04 02/26/20 23 02/25/2023 COMPR EHENS GRACIELA METAB OLIC PANEL potassium 4.2 mmol/ L 3.5-5. 1 Not Available [facility] (Lab) [address] [place], [address], 02/25/2023 14:52:04 02/26/20 23 02/25/2023 COMPR EHENS GRACIELA METAB OLIC PANEL chloride 104 mmol/ L 98-107 Not Available [facility] (Lab) [address] [place], [address], 02/25/2023 14:52:04 02/26/20 23 02/25/2023 COMPR EHENS GRACIELA METAB OLIC PANEL carbon dioxide 29 mmol/ L 22-30 Not Available [facility] (Lab) [address] [place], [address], 02/25/2023 14:52:04 02/26/20 23 02/25/2023 COMPR EHENS GRACIELA METAB OLIC PANEL anion gap 12.2 mmol/ L 14-22 low Not Available [facility] (Lab) [address] [place], [address], 02/25/2023 14:52:04 02/26/20 23 02/25/2023 COMPR EHENS GRACIELA METAB OLIC PANEL glucose 109 mg/dL 70-99 high Not Available [facility] (Lab) [address] [place], [address], 02/25/2023 14:52:04 02/26/20 23 02/25/2023 COMPR EHENS GRACIELA METAB OLIC PANEL BUN 18 mg/dL 8-19 Not Available [facility] (Lab) [address] [place], [address], 02/25/2023 14:52:04 02/26/20 23 02/25/2023 COMPR EHENS GRACIELA METAB OLIC PANEL creatinine 1.01 mg/dL 0.66-1 .25 Not Available [facility] (Lab) [address] [place], [address], 02/25/2023 14:52:04 02/26/20 23 02/25/2023 COMPR EHENS GRACIELA METAB OLIC PANEL GFR 53 Refer ence Range : [place] ge GFR Healt hy Adult : >60 mL/mi n/1.7 3 m2 Chron ic Kidne y Disea se: 15-60 mL/mi n/1.7 3 m2 Kidne y Failu re: <15/m L/min /1.73 m2 www.n iddk. nih.g ov The MDRD study equat ion has not been valid ated in child vince <18 years of age; pregn ant women ; the elder ly >85 years of age; or in some racia l or ethni c subgr oups, such as Hispa nics. Outsi de the valid ated tracey eters , estim ated GFR is less accur ate, requi ring clini gopi judgm ent on a case- by-ca se basis . Clini gopi inter preta tion for other races and ages must be made by the clini kaiden. The MDRD study equat ion has not been valid ated for the evalu ation of serum creat inine relat ed to nutri augustine l statu s or medic ation usage . For perso ns <18 years of age, a pedia tric GFR calcu lator is avail able on the [facility] websi te: https ://phill mclean.nu bill.o brent/pr ofess ional s/kdo qi/gf r_cal culat or Not Available [facility] (Lab) [address] [place], [address], 02/25/2023 14:52:04 02/26/20 23 02/25/2023 COMPR EHENS GRACIELA METAB OLIC PANEL alkaline phosphatase 87 U/L 38-126 Not Available [facility] (Lab) [address] [place], [address], 02/25/2023 14:52:04 02/26/20 23 02/25/2023 COMPR EHENS GRACIELA METAB OLIC PANEL alanine aminotransfe rase 26 U/L 0-35 Not Available [facility] (Lab) [address] [place], [address], 02/25/2023 14:52:04 02/26/20 23 02/25/2023 COMPR EHENS GRACIELA METAB OLIC PANEL aspartate aminotransfe rase 31 U/L 15-37 Not Available [facility] (Lab) [address] [place], [address], 02/25/2023 14:52:04 02/26/20 23 02/25/2023 COMPR EHENS GRACIELA METAB OLIC PANEL bilirubin, total 1.00 mg/dL 0.20-1 .30 Not Available [facility] (Lab) [address] [place], [address], 02/25/2023 14:52:04 02/26/20 23 02/25/2023 COMPR EHENS GRACIELA METAB OLIC PANEL calcium 10.1 mg/dL 8.4-10 .2 Not Available [facility] (Lab) [address] [place], [address], 02/25/2023 14:52:04 02/26/20 23 02/25/2023 COMPR EHENS GRACIELA METAB OLIC PANEL total protein 7.8 g/dL 6.3-8. 2 Not Available [facility] (Lab) [address] [place], [address], 02/25/2023 14:52:04 02/26/20 23 02/25/2023 COMPR EHENS GRACIELA METAB OLIC PANEL albumin 4.5 g/dL 3.0-4. 4 high Not Available [facility] (Lab) [address] [place], [address], 02/25/2023 14:52:04 02/26/20 23 02/25/2023 COMPR EHENS GRACIELA METAB OLIC PANEL globulin 3.3 g/dL 2.6-4. 2 Not Available [facility] (Lab) [address] [place], [address], 02/25/2023 14:52:04 02/26/20 23 02/25/2023 COMPR EHENS GRACIELA METAB OLIC PANEL A/G ratio 1.4 ratio 1.0-2. 0 Not Available [facility] (Lab) [address] [place], [address], 02/25/2023 14:52:04 02/26/20 23 02/25/2023 LIPID PANEL cholesterol 159 mg/dL 140-19 9 NIH VERNA NSUS RECOM MENDA TION FOR JORDAN STERO L: ADULT CHILD LOW RISK: <200 <170 BORDE RLINE : <200- 239 ----- HIGH RISK: >240 >200 Not Available [facility] (Lab) [address] [place], [address], 02/25/2023 14:52:08 02/26/20 23 02/25/2023 LIPID PANEL triglyceride s 153 mg/dL 0-150 high NIH VERNA NSUS REPOR T RECOM MENDA TION FOR TRIGL YCERI SARA: ADULT CHILD LOW RISK: <150 ----- BODER LINE: 150-1 99 ----- HIGH RISK: >200 ----- Not Available [facility] (Lab) [address] [place], [address], 02/25/2023 14:52:08 02/26/20 23 02/25/2023 LIPID PANEL HDL cholesterol 51 mg/dL 40- Not Available [facility] (Lab) [address] [place], [address], 02/25/2023 14:52:08 02/26/20 23 02/25/2023 LIPID PANEL LDL cholesterol, calculated 77 mg/dL 0-130 NIH VERNA NSUS REPOR T RECOM MENDA TIONS FOR LDL: ADULT CHILD LOW RISK <130 <110 (OPTI MAL LDL) <100 ----- BORDE RLINE : 130-1 59 ----- HIGH RISK: >160 >130 A TRIGL YCERI DE RESUL T >400 INVAL IDATE S THE CALCU LATIO N FOR LDL FRACT IONAT ION - THE LDL RESUL T WILL NOT BE REPOR BILLY. Not Available [facility] (Lab) [address] [place], [address], 02/25/2023 14:52:08 02/26/20 23 02/25/2023 T4 FREE free T4 1.08 NG/dL 0.78-2 .19 Not Available [facility] (Lab) [address] [place], [address], 02/25/2023 15:04:31 02/26/20 23 02/25/2023 VITAM IN D 25-HY DROXY [id number] 62.2 NG/mL 30-100 Vitam in D Statu s: Defic ient: <20 ng/mL Insuf ficie nt: 20-29 ng/mL Suffi cient : 30-10 0 ng/mL Not Available [facility] (Lab) [address] [place], [address], 02/25/2023 15:07:25 02/26/20 23 02/25/2023 TSH thyroid-stim ulating hormone 0.824 uIU/m L 0.465- 4.680 Not Available [facility] (Lab) [address] [place], [address], 02/25/2023 15:20:28 02/26/20 23 02/25/2023 VITAM IN B12 (TERRY FRED ) vb12 611 pg/mL 239-93 1 Not Available [facility] (Lab) [address] [place], [address], 02/25/2023 15:43:01 11/30/19 24 11/30/2023 SARS- COV-2 RNA(C OVID1 9),RT -PCR sars-cov-2 RNA(covid19) ,RT-PCR POSITI VE abnormal This test has been autho rized by the FDA under an Emerg ency Use Autho rizat ion (EUA) for use by autho rized labor atori es. Negat graciela resul ts do not precl ude SARS- CoV-2 and shoul d not be used as the sole basis for treat ment or other patie nt manag ement decis ions. Test resul ts shoul d be corre lated with the clini gopi histo ry, epide miolo gical data, and other data avail able to the clini kaiden evalu ating the patie nt. Linda pan w the Fact Sheet s for healt h care provi ders and patie nts at the [facility] ariela: https ://ww w.fda .gov/ media /5591 12/do wnloa d https ://ww w.fda .gov/ media /9603 13/do wnloa d Metho dolog y: Real- Time RT-PC R Not Available [facility] (Lab) [address] [place], [address], 11/30/2023 12:05:29 12/23/1912/23/2023 CBC/C OMPLE TE BLD COUNT W/DIF F white blood cells 5.8 x10'3 /uL 4.2-10 .8 Not Available [facility] (Lab) [address] [place], [address], 12/23/2023 17:14:48 12/23/19 24 12/23/2023 CBC/C OMPLE TE BLD COUNT W/DIF F red blood cells 4.17 x10'6 /uL 3.80-5 .20 Not Available [facility] (Lab) [address] [place], [address], 12/23/2023 17:14:48 12/23/1912/23/2023 CBC/C OMPLE TE BLD COUNT W/DIF F hemoglobin 12.7 g/dL 12.0-1 5.6 Not Available [facility] (Lab) [address] [place], [address], 12/23/2023 17:14:48 12/23/1912/23/2023 CBC/C OMPLE TE BLD COUNT W/DIF F hematocrit 38.6 % 35.7-4 5.7 Not Available [facility] (Lab) [address] [place], [address], 12/23/2023 17:14:48 12/23/19 24 12/23/2023 CBC/C OMPLE TE BLD COUNT W/DIF F mean red cell volume 92.6 fL 82.0-9 9.0 Not Available [facility] (Lab) [address] [place], [address], 12/23/2023 17:14:48 12/23/19 24 12/23/2023 CBC/C OMPLE TE BLD COUNT W/DIF F mean red cell hemoglobin 30.5 pg 27.0-3 3.0 Not Available [facility] (Lab) [address] [place], [address], 12/23/2023 17:14:48 12/23/19 24 12/23/2023 CBC/C OMPLE TE BLD COUNT W/DIF F mean RBC HGB concentratio n 32.9 g/dL 31.0-3 6.0 Not Available [facility] (Lab) [address] [place], [address], 12/23/2023 17:14:48 12/23/19 24 12/23/2023 CBC/C OMPLE TE BLD COUNT W/DIF F red cell distribution width 13.0 % 11.8-1 5.5 Not Available [facility] (Lab) [address] [place], [address], 12/23/2023 17:14:48 12/23/19 24 12/23/2023 CBC/C OMPLE TE BLD COUNT W/DIF F platelets 314 x10'3 /uL 150-40 0 Not Available [facility] (Lab) [address] [place], [address], 12/23/2023 17:14:48 12/23/19 24 12/23/2023 CBC/C OMPLE TE BLD COUNT W/DIF F mean platelet volume 12.4 fL 9.0-12 .4 Not Available [facility] (Lab) [address] [place], [address], 12/23/2023 17:14:48 12/23/19 24 12/23/2023 CBC/C OMPLE TE BLD COUNT W/DIF F neutrophils 52.0 % 39.0-7 2.0 Not Available [facility] (Lab) [address] [place], [address], 12/23/2023 17:14:48 12/23/19 24 12/23/2023 CBC/C OMPLE TE BLD COUNT W/DIF F lymphocytes 34.0 % 16.0-4 7.0 Not Available [facility] (Lab) [address] [place], [address], 12/23/2023 17:14:48 12/23/19 24 12/23/2023 CBC/C OMPLE TE BLD COUNT W/DIF F monocytes 9.3 % 5.0-12 .0 Not Available [facility] (Lab[facility] [address] [facility] [place], [address], 12/23/2023 17:14:48 12/23/19 24 12/23/2023 CBC/C OMPLE TE BLD COUNT W/DIF F eosinophils 2.8 % 1.0-7. 0 Not Available [facility] (Lab) [address] [place], [address], 12/23/2023 17:14:48 12/23/19 24 12/23/2023 CBC/C OMPLE TE BLD COUNT W/DIF F basophils 1.7 % 0.0-2. 0 Not Available [facility] (Lab) [address] [place], [address], 12/23/2023 17:14:48 12/23/19 24 12/23/2023 CBC/C OMPLE TE BLD COUNT W/DIF F immature granulocytes 0.2 % 0.00-0 .50 Not Available [facility] (Lab) [address] [place], [address], 12/23/2023 17:14:48 12/23/19 24 12/23/2023 CBC/C OMPLE TE BLD COUNT W/DIF F neutrophils, absolute count 3.02 x10'3 /uL 1.5-8. 0 Not Available [facility] (Lab) [address] [place], [address], 12/23/2023 17:14:48 12/23/19 24 12/23/2023 CBC/C OMPLE TE BLD COUNT W/DIF F lymphocytes, absolute count 1.97 x10'3 /uL 1.07-3 .43 Not Available [facility] (Lab) [address] [place], [address], 12/23/2023 17:14:48 12/23/19 24 12/23/2023 CBC/C OMPLE TE BLD COUNT W/DIF F monocytes, absolute count 0.54 x10'3 /uL 0.29-0 .99 Not Available [facility] (Lab) [address] [place], [address], 12/23/2023 17:14:48 12/23/19 24 12/23/2023 CBC/C OMPLE TE BLD COUNT W/DIF F eosinophils, absolute count 0.16 x10'3 /uL 0.02-0 .53 Not Available [facility] (Lab) [address] [place], [address], 12/23/2023 17:14:48 12/23/19 24 12/23/2023 CBC/C OMPLE TE BLD COUNT W/DIF F basophils, absolute count 0.10 x10'3 /uL 0.01-0 .08 high Not Available [facility] (Lab) [address] [place], [address], 12/23/2023 17:14:48 12/23/19 24 12/23/2023 CBC/C OMPLE TE BLD COUNT W/DIF F immature granulocytes ,absolute 0.01 x10'3 /uL 0.00-0 .05 Not Available [facility] (Lab) [address] [place], [address], 12/23/2023 17:14:48 12/23/19 24 12/23/2023 CBC/C OMPLE TE BLD COUNT W/DIF F nucleated red blood cells 0.0 % -0 Not Available [facility] (Lab) [address] [place], [address], 12/23/2023 17:14:48 12/23/19 24 12/23/2023 CBC/C OMPLE TE BLD COUNT W/DIF F NRBC# 0.00 x10'3 /uL Not Available [facility] (Lab) [address] [place], [address], 12/23/2023 17:14:48 12/23/19 24 12/23/2023 COMPR EHENS GRACIELA METAB OLIC PANEL sodium 139 mmol/ L 137-14 5 Not Available [facility] (Lab) [address] [place], [address], 12/23/2023 17:49:12 12/23/19 24 12/23/2023 COMPR EHENS GRACIELA METAB OLIC PANEL potassium 3.9 mmol/ L 3.5-5. 1 Not Available [facility] (Lab) [address] [place], [address], 12/23/2023 17:49:12 12/23/19 24 12/23/2023 COMPR EHENS GRACIELA METAB OLIC PANEL chloride 103 mmol/ L 98-107 Not Available [facility] (Lab) [address] [place], [address], 12/23/2023 17:49:12 12/23/19 24 12/23/2023 COMPR EHENS GRACIELA METAB OLIC PANEL carbon dioxide 30 mmol/ L 22-30 Not Available [facility] (Lab) [address] [place], [address], 12/23/2023 17:49:12 12/23/19 24 12/23/2023 COMPR EHENS GRACIELA METAB OLIC PANEL anion gap 9.9 mmol/ L 14-22 low Not Available [facility] (Lab) [address] [place], [address], 12/23/2023 17:49:12 12/23/19 24 12/23/2023 COMPR EHENS GRACIELA METAB OLIC PANEL glucose 104 mg/dL 70-99 high Not Available [facility] (Lab) [address] [place], [address], 12/23/2023 17:49:12 12/23/19 24 12/23/2023 COMPR EHENS GRACIELA METAB OLIC PANEL BUN 14 mg/dL 8-19 Not Available [facility] (Lab) [address] [place], [address], 12/23/2023 17:49:12 12/23/19 24 12/23/2023 COMPR EHENS GRACIELA METAB OLIC PANEL creatinine 0.89 mg/dL 0.66-1 .25 Not Available [facility] (Lab) [address] [place], [address], 12/23/2023 17:49:12 12/23/19 24 12/23/2023 COMPR EHENS GRACIELA METAB OLIC PANEL GFR >60 Refer ence Range : Mcclusky ge GFR Healt hy Adult : >60 mL/mi n/1.7 3 m2 Chron ic Kidne y Disea se: 15-60 mL/mi n/1.7 3 m2 Kidne y Failu re: <15/m L/min /1.73 m2 www.n iddk. nih.g ov The MDRD study equat ion has not been valid ated in child vince <18 years of age; pregn ant women ; the elder ly >85 years of age; or in some racia l or ethni c subgr oups, such as Hispa nics. Outsi de the valid ated tracey eters , estim ated GFR is less accur ate, requi ring clini gopi judgm ent on a case- by-ca se basis . Clini gopi inter preta tion for other races and ages must be made by the clini kaiden. The MDRD study equat ion has not been valid ated for the evalu ation of serum creat inine relat ed to nutri augustine l statu s or medic ation usage . For perso ns <18 years of age, a pedia tric GFR calcu lator is avail able on the [facility] websi te: https ://phill brighty.o rg/pr ofess ional s/kdo qi/gf r_cal culat or Not Available [facility] (Lab) [address] [place], [address], 12/23/2023 17:49:12 12/23/19 24 12/23/2023 COMPR EHENS GRACIELA METAB OLIC PANEL alkaline phosphatase 98 U/L 38-126 Not Available [facility] (Lab) [address] [place], [address], 12/23/2023 17:49:12 12/23/19 24 12/23/2023 COMPR EHENS GRACIELA METAB OLIC PANEL alanine aminotransfe rase 21 U/L 0-35 Not Available [facility] (Lab) [address] [place], [address], 12/23/2023 17:49:12 12/23/19 24 12/23/2023 COMPR EHENS GRACIELA METAB OLIC PANEL aspartate aminotransfe rase 30 U/L 15-37 Not Available [facility] (Lab) [address] [place], [address], 12/23/2023 17:49:12 12/23/19 24 12/23/2023 COMPR EHENS GRACIELA METAB OLIC PANEL bilirubin, total 1.10 mg/dL 0.20-1 .30 Not Available [facility] (Lab) [address] [place], [address], 12/23/2023 17:49:12 12/23/19 24 12/23/2023 COMPR EHENS GRACIELA METAB OLIC PANEL calcium 10.3 mg/dL 8.4-10 .2 high Not Available [facility] (Lab) [address] [place], [address], 12/23/2023 17:49:12 12/23/19 24 12/23/2023 COMPR EHENS GRACIELA METAB OLIC PANEL total protein 7.5 g/dL 6.3-8. 2 Not Available [facility] (Lab) [address] [place], [address], 12/23/2023 17:49:12 12/23/19 24 12/23/2023 COMPR EHENS GRACIELA METAB OLIC PANEL albumin 4.4 g/dL 3.0-4. 4 Not Available [facility] (Lab) [address] [place], [address], 12/23/2023 17:49:12 12/23/19 24 12/23/2023 COMPR EHENS GRACIELA METAB OLIC PANEL globulin 3.1 g/dL 2.6-4. 2 Not Available [facility] (Lab) [address] [place], [address], 12/23/2023 17:49:12 12/23/19 24 12/23/2023 COMPR EHENS GRACIELA METAB OLIC PANEL A/G ratio 1.4 ratio 1.0-2. 0 Not Available [facility] (Lab) [address] [place], [address], 12/23/2023 17:49:12 12/23/19 24 12/23/2023 LIPID PANEL cholesterol 147 mg/dL 140-19 9 NIH VERNA NSUS RECOM MENDA TION FOR JORDAN STERO L: ADULT CHILD LOW RISK: <200 <170 BORDE RLINE : <200- 239 ----- HIGH RISK: >240 >200 Not Available [facility] (Lab) [address] [place], [address], 12/23/2023 17:49:15 12/23/19 24 12/23/2023 LIPID PANEL triglyceride s 129 mg/dL 0-150 NIH VERNA NSUS REPOR T RECOM MENDA TION FOR TRIGL YCERI SARA: ADULT CHILD LOW RISK: <150 ----- BODER LINE: 150-1 99 ----- HIGH RISK: >200 ----- Not Available [facility] (Lab) [address] [place], [address], 12/23/2023 17:49:15 12/23/19 24 12/23/2023 LIPID PANEL HDL cholesterol 52 mg/dL 40- Not Available [facility] (Lab) [address] [place], [address], 12/23/2023 17:49:15 12/23/19 24 12/23/2023 LIPID PANEL LDL cholesterol, calculated 69 mg/dL 0-130 NIH VERNA NSUS REPOR T RECOM MENDA TIONS FOR LDL: ADULT CHILD LOW RISK <130 <110 (OPTI MAL LDL) <100 ----- KAREY RLINE : 130-1 59 ----- HIGH RISK: >160 >130 A TRIGL YCERI DE RESUL T >400 INVAL IDATE S THE CALCU LATIO N FOR LDL FRACT IONAT ION - THE LDL RESUL T WILL NOT BE REPOR BILLY. Not Available [facility] (Lab) [address] [place], [address], 12/23/2023 17:49:15 12/23/19 24 12/23/2023 T4 FREE free T4 1.10 NG/dL 0.78-2 .19 Not Available [facility] (Lab) [address] [place], [address], 12/23/2023 18:06:50 12/23/19 24 12/23/2023 TSH thyroid-stim ulating hormone 0.827 uIU/m L 0.465- 4.680 Not Available [facility] (Lab) [address] [place], [address], 12/23/2023 18:12:07 06/22/20 24 06/22/2024 CBC/C OMPLE TE BLD COUNT W/DIF F white blood cells 5.5 x10'3 /uL 4.2-10 .8 Not Available [facility] (Lab) [address] [place], [address], 06/22/2024 13:57:05 06/22/20 24 06/22/2024 CBC/C OMPLE TE BLD COUNT W/DIF F red blood cells 4.29 x10'6 /uL 3.80-5 .20 Not Available [facility] (Lab) [address] [place], [address], 06/22/2024 13:57:05 06/22/20 24 06/22/2024 CBC/C OMPLE TE BLD COUNT W/DIF F hemoglobin 12.7 g/dL 12.0-1 5.6 Not Available [facility] (Lab) [address] [place], [address], 06/22/2024 13:57:05 06/22/20 24 06/22/2024 CBC/C OMPLE TE BLD COUNT W/DIF F hematocrit 38.5 % 35.7-4 5.7 Not Available [facility] (Lab) [address] [place], [address], 06/22/2024 13:57:05 06/22/20 24 06/22/2024 CBC/C OMPLE TE BLD COUNT W/DIF F mean red cell volume 89.7 fL 82.0-9 9.0 Not Available [facility] (Lab) [address] [place], [address], 06/22/2024 13:57:05 06/22/20 24 06/22/2024 CBC/C OMPLE TE BLD COUNT W/DIF F mean red cell hemoglobin 29.6 pg 27.0-3 3.0 Not Available [facility] (Lab) [address] [place], [address], 06/22/2024 13:57:05 06/22/20 24 06/22/2024 CBC/C OMPLE TE BLD COUNT W/DIF F mean RBC HGB concentratio n 33.0 g/dL 31.0-3 6.0 Not Available [facility] (Lab) [address] [place], [address], 06/22/2024 13:57:05 06/22/20 24 06/22/2024 CBC/C OMPLE TE BLD COUNT W/DIF F red cell distribution width 12.9 % 11.8-1 5.5 Not Available [facility] (Lab) [address] [place], [address], 06/22/2024 13:57:05 06/22/20 24 06/22/2024 CBC/C OMPLE TE BLD COUNT W/DIF F platelets 359 x10'3 /uL 150-40 0 Not Available [facility] (Lab) [address] [place], [address], 06/22/2024 13:57:05 06/22/20 24 06/22/2024 CBC/C OMPLE TE BLD COUNT W/DIF F mean platelet volume 11.6 fL 9.0-12 .4 Not Available [facility] (Lab) [address] [place], [address], 06/22/2024 13:57:05 06/22/20 24 06/22/2024 CBC/C OMPLE TE BLD COUNT W/DIF F neutrophils 52.6 % 39.0-7 2.0 Not Available [facility] (Lab) [address] [place], [address], 06/22/2024 13:57:05 06/22/20 24 06/22/2024 CBC/C OMPLE TE BLD COUNT W/DIF F lymphocytes 33.9 % 16.0-4 7.0 Not Available [facility] (Lab) [address] [place], [address], 06/22/2024 13:57:05 06/22/20 24 06/22/2024 CBC/C OMPLE TE BLD COUNT W/DIF F monocytes 9.3 % 5.0-12 .0 Not Available [facility] (Lab) [address] [place], [address], 06/22/2024 13:57:05 06/22/20 24 06/22/2024 CBC/C OMPLE TE BLD COUNT W/DIF F eosinophils 2.4 % 1.0-7. 0 Not Available [facility] (Lab) [address] [place], [address], 06/22/2024 13:57:05 06/22/20 24 06/22/2024 CBC/C OMPLE TE BLD COUNT W/DIF F basophils 1.6 % 0.0-2. 0 Not Available [facility] (Lab) [address] [place], [address], 06/22/2024 13:57:05 06/22/20 24 06/22/2024 CBC/C OMPLE TE BLD COUNT W/DIF F immature granulocytes 0.2 % 0.00-0 .50 Not Available [facility] (Lab) [address] [place], [address], 06/22/2024 13:57:05 06/22/20 24 06/22/2024 CBC/C OMPLE TE BLD COUNT W/DIF F neutrophils, absolute count 2.88 x10'3 /uL 1.5-8. 0 Not Available [facility] (Lab) [address] [place], [address], 06/22/2024 13:57:05 06/22/20 24 06/22/2024 CBC/C OMPLE TE BLD COUNT W/DIF F lymphocytes, absolute count 1.86 x10'3 /uL 1.07-3 .43 Not Available [facility] (Lab) [address] [place], [address], 06/22/2024 13:57:05 06/22/20 24 06/22/2024 CBC/C OMPLE TE BLD COUNT W/DIF F monocytes, absolute count 0.51 x10'3 /uL 0.29-0 .99 Not Available [facility] (Lab) [address] [place], [address], 06/22/2024 13:57:05 06/22/20 24 06/22/2024 CBC/C OMPLE TE BLD COUNT W/DIF F eosinophils, absolute count 0.13 x10'3 /uL 0.02-0 .53 Not Available [facility] (Lab) [address] [place], [address], 06/22/2024 13:57:05 06/22/20 24 06/22/2024 CBC/C OMPLE TE BLD COUNT W/DIF F basophils, absolute count 0.09 x10'3 /uL 0.01-0 .08 high Not Available [facility] (Lab) [address] [place], [address], 06/22/2024 13:57:05 06/22/20 24 06/22/2024 CBC/C OMPLE TE BLD COUNT W/DIF F immature granulocytes ,absolute 0.01 x10'3 /uL 0.00-0 .05 Not Available [facility] (Lab) [address] [place], [address], 06/22/2024 13:57:05 06/22/20 24 06/22/2024 CBC/C OMPLE TE BLD COUNT W/DIF F nucleated red blood cells 0.0 % -0 Not Available [facility] (Lab) [address] [place], [address], 06/22/2024 13:57:05 06/22/20 24 06/22/2024 CBC/C OMPLE TE BLD COUNT W/DIF F NRBC# 0.00 x10'3 /uL Not Available [facility] (Lab) [address] [place], [address], 06/22/2024 13:57:05 06/22/20 24 06/22/2024 COMPR EHENS GRACIELA METAB OLIC PANEL sodium 138 mmol/ L 137-14 5 Not Available [facility] (Lab) [address] [place], [address], 06/22/2024 16:31:14 06/22/20 24 06/22/2024 COMPR EHENS GRACIELA METAB OLIC PANEL potassium 3.9 mmol/ L 3.5-5. 1 Not Available [facility] (Lab) [address] [place], [address], 06/22/2024 16:31:14 06/22/20 24 06/22/2024 COMPR EHENS GRACIELA METAB OLIC PANEL chloride 108 mmol/ L 98-107 high Not Available [facility] (Lab) [address] [place], [address], 06/22/2024 16:31:14 06/22/20 24 06/22/2024 COMPR EHENS GRACIELA METAB OLIC PANEL carbon dioxide 27 mmol/ L 22-30 Not Available [facility] (Lab) [address] [place], [address], 06/22/2024 16:31:14 06/22/20 24 06/22/2024 COMPR EHENS GRACIELA METAB OLIC PANEL anion gap 6.9 mmol/ L 14-22 low Not Available [facility] (Lab) [address] [place], [address], 06/22/2024 16:31:14 06/22/20 24 06/22/2024 COMPR EHENS GRACIELA METAB OLIC PANEL glucose 110 mg/dL 70-99 high Not Available [facility] (Lab) [address] [place], [address], 06/22/2024 16:31:14 06/22/20 24 06/22/2024 COMPR EHENS GRACIELA METAB OLIC PANEL BUN 16 mg/dL 8-19 Not Available [facility] (Lab) [address] [place], [address], 06/22/2024 16:31:14 06/22/20 24 06/22/2024 COMPR EHENS GRACIELA METAB OLIC PANEL creatinine 1.13 mg/dL 0.66-1 .25 Not Available [facility] (Lab) [address] [place], [address], 06/22/2024 16:31:14 06/22/20 24 06/22/2024 COMPR EHENS GRACIELA METAB OLIC PANEL GFR 47 Refer ence Range : Mcclusky ge GFR Healt hy Adult : >60 mL/mi n/1.7 3 m2 Chron ic Kidne y Disea se: 15-60 mL/mi n/1.7 3 m2 Kidne y Failu re: <15/m L/min /1.73 m2 www.n iddk. nih.g ov The MDRD study equat ion has not been valid ated in child vince <18 years of age; pregn ant women ; the elder ly >85 years of age; or in some racia l or ethni c subgr oups, such as wv nics. Outsi de the valid ated tracey eters , estim ated GFR is less accur ate, requi ring clini gopi judgm ent on a case- by-ca se basis . Clini gopi inter preta tion for other races and ages must be made by the clini kaiden. The MDRD study equat ion has not been valid ated for the evalu ation of serum creat inine relat ed to nutri augustine l statu s or medic ation usage . For perso ns <18 years of age, a pedia tric GFR calcu lator is avail able on the F websi te: https ://phill bill.o rg/pr ofess ional s/kdo qi/gf r_cal culat or Not Available [facility] (Lab) [address] [place], [address], 06/22/2024 16:31:14 06/22/20 24 06/22/2024 COMPR EHENS GRACIELA METAB OLIC PANEL alkaline phosphatase 99 U/L 38-126 Not Available [facility] (Lab) [address] [place], [address], 06/22/2024 16:31:14 06/22/20 24 06/22/2024 COMPR EHENS GRACIELA METAB OLIC PANEL alanine aminotransfe rase 22 U/L 0-35 Not Available [facility] (Lab) [address] [place], [address], 06/22/2024 16:31:14 06/22/20 24 06/22/2024 COMPR EHENS GRACIELA METAB OLIC PANEL aspartate aminotransfe rase 28 U/L 15-37 Not Available [facility] (Lab) [address] [place], [address], 06/22/2024 16:31:14 06/22/20 24 06/22/2024 COMPR EHENS GRACIELA METAB OLIC PANEL bilirubin, total 1.30 mg/dL 0.20-1 .30 Not Available [facility] (Lab) [address] [place], [address], 06/22/2024 16:31:14 06/22/20 24 06/22/2024 COMPR EHENS GRACIELA METAB OLIC PANEL calcium 10.3 mg/dL 8.4-10 .2 high Not Available [facility] (Lab) [address] [place], [address], 06/22/2024 16:31:14 06/22/20 24 06/22/2024 COMPR EHENS GRACIELA METAB OLIC PANEL total protein 7.5 g/dL 6.3-8. 2 Not Available [facility] (Lab) [address] [place], [address], 06/22/2024 16:31:14 06/22/20 24 06/22/2024 COMPR EHENS GRACIELA METAB OLIC PANEL albumin 4.3 g/dL 3.0-4. 4 Not Available [facility] (Lab) [address] [place], [address], 06/22/2024 16:31:14 06/22/20 24 06/22/2024 COMPR EHENS GRACIELA METAB OLIC PANEL globulin 3.2 g/dL 2.6-4. 2 Not Available [facility] (Lab) [address] [place], [address], 06/22/2024 16:31:14 06/22/20 24 06/22/2024 COMPR EHENS GRACIELA METAB OLIC PANEL A/G ratio 1.3 ratio 1.0-2. 0 Not Available [facility] (Lab) [address] [place], [address], 06/22/2024 16:31:14 06/22/20 24 06/22/2024 LIPID PANEL cholesterol 150 mg/dL 140-19 9 NIH VERNA NSUS RECOM MENDA TION FOR JORDAN STERO L: ADULT CHILD LOW RISK: <200 <170 BORDE RLINE : <200- 239 ----- HIGH RISK: >240 >200 Not Available [facility] (Lab) [address] [place], [address], 06/22/2024 16:31:17 06/22/20 24 06/22/2024 LIPID PANEL triglyceride s 182 mg/dL 0-150 high NIH VERNA NSUS REPOR T RECOM MENDA TION FOR TRIGL YCERI SARA: ADULT CHILD LOW RISK: <150 ----- BODER LINE: 150-1 99 ----- HIGH RISK: >200 ----- Not Available [facility] (Lab) [address] [place], [address], 06/22/2024 16:31:17 06/22/20 24 06/22/2024 LIPID PANEL HDL cholesterol 45 mg/dL 40- Not Available [facility] (Lab) [address] [place], [address], 06/22/2024 16:31:17 06/22/20 24 06/22/2024 LIPID PANEL LDL cholesterol, calculated 69 mg/dL 0-130 NIH VERNA NSUS REPOR T RECOM MENDA TIONS FOR LDL: ADULT CHILD LOW RISK <130 <110 (OPTI MAL LDL) <100 ----- BORDE RLINE : 130-1 59 ----- HIGH RISK: >160 >130 A TRIGL YCERI DE RESUL T >400 INVAL IDATE S THE CALCU LATIO N FOR LDL FRACT IONAT ION - THE LDL RESUL T WILL NOT BE REPOR BILLY. Not Available [facility] (Lab) [address] [place], [address], 06/22/2024 16:31:17 03/05/20 23 03/05/2023 scree cheng breas t annemarie, bilat [facility] [address] [facility] [place] [address] Patien t Name: OSMANI MERINO A Access ion #: [id number] Sex: F : 1945 0 Locati on: RAD Attend ing Physic rodrigo: DANA READ CE Orderi ng Physic rodrigo: DANA READ CE Exam Date: 023 12:48 PM Exam Name: MG SCRN BREAST ANNEMARIE BILAT Admitt ing Diagno sis(es ): MAMMOG VIVIANA REPORT - FINAL EXAM: MG SCRN BREAST ANNEMARIE BILAT HISTOR Y: SCREEN ING MAMMOG NIYA COMPAR DENICE: 2020, 2019 TECHNI QUE: Bilate ral CC and MLO views of the breast s were perfor med. Digita l Mammog viviana images were obtain ed. CAD (compu ter assist ed detect ion) was utiliz ed. 3D Digita l breast tomosy nthesi s was perfor med and used in the interp retati on of images . FINDIN GS: There are scatte red areas of fibrog landul ar densit y. No masses , asymme tries, suspic ious calcif icatio ns, or deyanira ectura l Page 1 of 2 [facility] Scarlet schrader Name: OSMANI MERINO Access ion #: [id number] Sex: F : 1945 0 Exam Date: 12:48 PM Exam Name: MG SCRN BREAST ANNEMARIE BILAT Admitt ing Diagno sis(es ): distor tion are seen. IMPRES MARLA: BIRADS 1: Assess ment comple te. Negati ve. Recomm end annual screen ing mammog viviana. Accord ing to the [employer], yearly mammog linda are recomm ended starti ng at age 40 and contin uing as long as the woman is in good health . Clinic al Breast Exam should be part of the period ic health exam-a bout every 3 years for women in their 20s and 30s and every year for women 40 and over. Breast self-e xam is an option for women in their 20s. Any breast change noted on the breast self-e xam she would be report ed prompt ly to the scarlet schrader[facility] er. A negati ve mammog viviana report should not discou rage follow -up or biopsy of a clinic ally signif icant findin g and/or abnorm ality. Dense breast tissue may obscur e small neopla sms. This scarlet schrader has been entere d into a mammog viviana remind er system with a target date for her next mammog niya. Create d and electr onical ly signed by: Branden shah MD Signed Date: 6:01 PM (CT) Dictat ed by: Branden shah MD DD: 6:01 PM (CT) DT: 6:01 PM (CT) Page [address] (Imaging) [address] [place], [address], 03/06/2023 08:30:34 08/07/01/2023 LDCT, chest , for lung cance r scree cheng [facility] [address] [facility] [place] [address] Patien t Name: OSMANI MERINO Access ion #: [id number] Sex: F : 1945 6 Dictat ed By: Jessa herron Attend ing Physic rodrigo: DANA READ CE Orderi ng Physic rodrigo: DANA READ CE Exam Date: 2022 09:48 AM Exam Name: CT LOW DOSE CNCR SCREEN ING Admitt ing Diagno sis(es ): CLINIC AL INFORM ATION: Lung cancer screen ing. Britton t smoker . 60 pack year histor y of smokin g. TECHNI QUE: Low dose axial CT images of the chest were obtain ed withou t contra st for lung cancer screen ing purpos es. Images were displa yed in lung and soft tissue window s. Fuller l and sagitt al reform atted images were obtain ed, review ed, and stored . One or more of the follow ing dose reduct ion techni ques were used: Automa billy exposu re contro l. Adjust ment of mA and/or kV accord ing to patien t size. CTDIvo l = 1.29 mGy DLP = 50.8 mGy-cm COMPAR DENICE: Prior CT dated 020. FINDIN GS: Modera te centri lobula r emphys ematou s change s. Ground glass opacit y in the left upper lobe measur ing up to 1.3 cm (axial image 212 of 639). When correl ated to the prior exam, this ground glass opacit y measur ing up to 1 cm in retros pect (axial image 79 of 229 on the prior exam). Additi onal smalle r ground glass opacit ies in both lungs are minima lly change d. Heart size is within normal limits . Dense fuller ry artery calcif icatio n and/or fuller ry stents . Small subcen timete r medias tinal lymph nodes. Dense athero sclero tic calcif icatio n of the thorac ic aorta with no aneury sm. Chest wall is unrema rkable . Limite d low-do se noncon trast enhanc ed images of the upper abdome n demons trate athero sclero tic calcif icatio n of the abdomi nal aorta and its main branch es. Chroni c compre ssion fractu re of the T12 verteb ral body with up to 25% loss of height . No acute fractu re or suspic ious intrao sseous lesion . IMPRES AMRLA: Ground glass nodula r opacit ies as descri bed above, with the larges t measur ing up to 1.3 cm in the left upper lobe, increa sed in size compar ed to the prior exam. Based on size, these are catego rized as benign (lung rads 2). Page 1 [facility] [place] [address] [phone] Patien t Name: OSMANI MERINO Access ion #: [id number] Sex: F : 1945 6 Dictat ed By: Jessa herron Attend ing Physic rodrigo: RAINA ALONZO Physic rodrigo: DANA READ Exam Date: 2022 09:48 AM Exam Name: CT LOW DOSE CNCR SCREEN ING Admitt ing Diagno sis(es ): Lung Rads Catego ry: 2, benign . Recomm endati on: Contin ue annual screen ing with low-do se CT in 12 months . Electr onical ly Signed by: Jessa herron at 2022 13:49: 29 PM Page [id number] [place] [address] (Imaging) [address] [place], [address], 07/01/2023 17:33:56 07/28/20 24 07/28/2024 scredaron schrader annemarie, bilat [facility] [address] [place] [address] Patien t Name: OSMANI MERINO Access ion #: [id number] Sex: F : 1945 6 Dictat ed By: Mela Burns Attend ing Physic rodrigo: DANA READ Orderi ng Physic rodrigo: DANA READ Exam Date: 2023 13:47 PM Exam Name: MG SCRN BREAST ANNEMARIE BILAT Admitt ing Diagno sis(es ): SCREEN ING MAMMOG NIYA WITH TOMOSY NTHESI S: REASON FOR EXAM: SCREEN ING MAMMOG NIYA COMPAR DENICE: MG SCRN BREAST ANNEMARIE BILAT 3D on DOS: 3, MG SCRN BREAST ANNEMARIE BILAT 3D on DOS: , SCREEN ING BREAST ANNEMARIE, BILAT 3D on DOS: 0, SCREEN ING BREAST ANNEMARIE, BILAT 3D on DOS: 05/23/19 , DIGITA L MAMM, BILAT SCREEN ING 2D on DOS: TECHNI QUE: Bilate ral CC and MLO views obtain ed. Images were obtain ed using a Digita l Tomosy nthesi s Unit. Standa rd 2D and 3D Tomosy nthesi s images were review ed. FINDIN GS: BREAST COMPOS ITION: B - There are scatte red areas of fibrog landul ar densit y in the bilate ral breast s. In the right breast , no asymme trical parenc hymal patter n, deynaira ectura l distor tion, pleomo rphic microc alcifi cation s or masses . In the left breast , no asymme trical parenc hymal patter n, deyanira ectura l distor tion, pleomo rphic microc alcifi cation s or masses . IMPRES MARLA: No findin gs of malign kylee. FOLLOW UP RECOMM ENDATI ON: Recomm end annual mammog niya. BIRADS : 2 - Benign Page 1 [facility] [address] [place] [address] Scarlet macrina Name: OSMANI MERINO Access ion #: [id number] Sex: F : 1945 6 Dictat ed By: Mela Burns Attend ing Physic rodrigo: RAINA ALONZO ng Physic rodrigo: DANA READ Exam Date: 2023 13:47 PM Exam Name: MG SCRN BREAST ANNEMARIE BILAT Admitt ing Diagno sis(es ): Electr onical ly Signed by: Mela Burns at 2023 14:38: 25 PM Page 2 [email or web address] [facility] (Imaging) [address] [place], [address], 07/28/2024 21:14:32 07/28/20 24 07/28/2024 DEXA, axial skele ton [facility] [address] [place] [address] [phone] Patien t Name: OSMANI MERINO Access ion #: [id number] Sex: F : 1945 7 Dictat ed By: Mela Burns Attend [facility] Physic rodrigo: DANA READ Physic rodrigo: DANA READ Exam Date: 2023 13:44 PM Exam Name: XR DEXA-H IPS PELVIS SPINE Admitt bushra Diagno sis(es ): INDICA TION: 78 years old, Female ; Age-re lated osteop orosis w/out curren t fx. Postme nopaus al. DEXA SCAN: BONE DENSIT Y REPORT : AP SPINE (L1-L4 ) : T Score: -1.2 LEFT HIP TOTAL : T Score: -2.4 RT HIP TOTAL : T Score: -2.2 TOTAL BILAT HIP AVG: T Score: -2.3 10 YEAR FRACTU RE RISK* Not provid ed. IMPRES MARLA: 1. Osteop enia of the left hip. 2. Osteop enia of the right hip. 3. Normal bone minera l densit y of the lumbar spine. ------ ------ ------ ------ ------ ------ ------ ------ ----- *FRAX versio n 3.08. Fractu re probab ility calcul ated for an untrea billy patien t. Fractu re probab ility may be lower if the patien t has receiv ed treatm ent. Page 1 [facility] [address] [place] [id number] Patien t Name: OSMANI MERINO Access ion #: [id number] Sex: F : 1945 7 Dictat ed By: Mela Burns Attend ing Physic rodrigo: RAINA ALONZO Ordernatalia Physic rodrigo: DANA READ Exam Date: 2023 13:44 PM Exam Name: XR DEXA-H IPS PELVIS SPINE Admitt ing Diagno sis(es ): T-scor e: compar denice by standsaud rd deviat ion (SD) to a young adult popula tion, matche d for sex and ethnic ity (used for postme nopaus al women and men >50 years) and classi fied by WHO criter ia. -1.0: normal <-1.0 to >-2.5: osteop enia -2.5: osteop orosis -2.5 plus fragil ity fractu re: severe osteop orosis Z-scor e: compar ed by SD to an age, sex, and ethnic ity popula tion (used for premen opausa l women, men <50 years, and childr en instea d of T-scor e WHO criter ia 4) <-2.0: below expect ed range/ low bone densit y for age, and a cause should be sought Electr onical ly Signed by: Mela Burns at 2023 14:39: 20 PM Page 2 [facility] (Imaging) [address] [place], [address], 07/28/2024 21:14:55 07/28/20 24 07/28/2024 LDCT, chest , for lung cance r scree cheng [facility] [address] [id number] Patien t Name: OSMANI MERINO Access ion #: [id number] Sex: F : 1945 6 Dictat ed By: Casimiro allison Attend ing Physic rodrigo: DANA READ Orderi ng Physic rodrigo: DANA READ Exam Date: 2023 14:00 PM Exam Name: CT LOW DOSE CNCR SCREEN ING Admitt ing Diagno sis(es ): Exam: CT LOW DOSE cancer SCREEN ING Histor y: Nicoti ne Depend ence Compar denice Study: CT LOW DOSE CNCR SCREEN ING on DOS: 3, CT LOW DOSE CNCR SCREEN ING on DOS: [address]: None TECHNI QUE: Multid etecto r utiliz ing high-r esolut ion low-do se techni que CT of chest with IV contra st. Radiat ion Dose Inform ation: CT Dose: CTDI volume is mGy. Dose-l ength produc t is mGy*cm FINDIN GS: There is nodula r scarri ng in the right apex. There is a calcif ied granul naveen in the left anteri or upper lobe at the level of the superi or medias tinum. There is subtle change s sugges ting possib le early centri lobula r emphys karissa. No suspic ious masses or nodule s are apprec iated there are dense calcif icatio ns involv ing the aortic arch Heart size is normal there also dense calcif icatio ns in the fuller ry arteri es IMPRES MARLA: Page 1 [facility] [address] [id number] [phone] Patien t Name: OSMANI MERINO Access ion #: [id number] Sex: F : 1945 6 Dictat ed By: Casimiro allison Attend ing Physic rodrigo: RAINA ALONZO Physic rodrigo: DANA READ Exam Date: 2023 14:00 PM Exam Name: CT LOW DOSE CNCR SCREEN ING Admitt ing Diagno sis(es ): 1. No acute findin gs. No defini te suspic ious soft tissue nodule s 2. There are very subtle change s sugges ting possib le early centri lobula r emphys karissa. 3. Lung rads catego ry 1 patien t should be encour aged to mainta in yearly high-r esolut ion low-do se chest CT HS:Y Electr onical ly Signed by: Casimiro allison at 2023 21:58: 00 PM Page 2 [email or web address] [facility] (Imaging) [address] [place], [address], 07/29/2024 07:46:32 Result Notes None recorded. Problems Name Problem SNOMED Code Status Onset Date Resolution Date Notes Provider Name and Address Organization Details Recorded Time Benign essential hypertens ion 3016823 Completed Not Available [facility] 3 06:14:05 Hyperchol esterolem ia 66999323 Active 2019 Not Available [facility] 3 06:14:05 Constipat ion 04475795 Active Not Available [facility] 3 06:14:05 Acquired trigger finger 4829262 Active Not Available [facility] 3 06:14:05 Acute sinusitis 41922874 Active 2021 Not Available [facility] 3 06:14:05 Radiother apy follow-up 024281725 Active Not Available [facility] 3 06:14:05 Anxiety disorder 171488174 Active 2020 Not Available [facility] 3 06:14:06 Pure hyperchol esterolem ia 379495212 Completed Not Available [facility] 3 06:14:06 Synovitis /tenosyno vitis - hand 996553791 Active Not Available [facility] 3 06:14:06 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 Active Not Available [facility] 3 06:14:06 Pain in left foot 03268211456 9107 Active 2019 Not Available [facility] 3 06:14:06 Periphera l arterial occlusive disease 203659701 Active 2019 Not Available [facility] 3 06:14:06 Synovitis 241067627 Active Not Available [facility] 3 06:14:06 History of polyp of colon 612674474 Active 2019 Not Available [facility] 3 06:14:06 Upper respirato ry infection 96358897 Active 2021 Not Available [facility] 3 06:14:06 Alopecia 26541674 Active Not Available [facility] 3 06:14:06 Essential hypertens ion 74160547 Active 2020 Not Available [facility] 3 06:14:06 Osteoporo sis 95949590 Active Not Available [facility] 3 06:14:06 Ganglion of joint 27046498 Active Not Available [facility] 3 06:14:06 Perniciou s anemia 23175827 Active Not Available [facility] 3 06:14:06 Neuropath y 236792567 Active 2022 Pollo Read MD [address], [place], [address] , [place] [facility] [employer] [facility] 3 11:31:11 Hemorrhoi ds 11035770 Active 2022 Pollo Read MD [address], [place], [address] , [place] [employer] [facility] 3 10:16:32 Cough 27370127 Active 2023 Dorothea Santiago CMA null, [place] [facility] 4 10:32:26 COVID-19 672826840 Active 2023 Pollo Read MD [address], [address], [place], [address] , [place] [facility] 4 12:13:46 Respirato ry tract congestio n and cough 229355862 Active 2023 Dorothea Santiago CMA null, [place] [facility] 4 15:50:38 Vitamin D deficienc y 31742952 Active 2023 Pollo Read MD [address], [place], [address] , [facility] [employer] [facility] 4 11:27:53 Senile osteoporo sis 71356578 Active 2023 [place], [facility] 4 11:19:51 Acute right otitis media 357525059 Active 2023 Pollo Read MD [address], [place], [address] , [facility] [employer] [facility] 4 11:47:46 Acute bronchiti s 68183636 Active 2024 Pollo Read MD [address], [place], [address] , [facility] [employer] [facility] 5 11:36:12 Problem Notes None recorded. Procedures Surgical History Date Name Laterality Status Provider Name and Address Organization Details Recorded Time Lasik completed Not Available [facility] 11/2022 06:10:39 incision of tendon sheath completed Not Available [facility] 01/14/2023 06:10:39 colonoscopy completed Not Available [facility] 01/14/2023 06:10:39 Cataract Surgery completed Not Available [facility] 01/14/2023 06:10:39 Imaging Results Imaging Date Name Status LastModified by Organiz ation Details LastModified Time 03/05/2023 screening breast annemarie, bilat completed [address] (Imaging) [address] [place], [address], 03/06/2023 08:30:34 07/01/2023 LDCT, chest, for lung cancer screening completed [address] (Imaging) [address] [place], [address], 07/01/2023 17:33:56 07/28/2024 screening breast annemarie, bilat completed [address] (Imaging) [address] [place], [address], 07/28/2024 21:14:32 07/28/2024 DEXA, axial skeleton completed [address] (Imaging) [address] [place], [address], 07/28/2024 21:14:55 07/28/2024 LDCT, chest, for lung cancer screening completed [address] (Imaging) [address] [place], [address], 07/29/2024 07:46:32 Procedure Notes None recorded. Medical Equipment None Reported. Allergies Allergen ID Allergen Name Allergen Category Reaction Reaction Severity Criticality Documentation Date Start Date Code Code System Note Provider Name and Address Organization Details Recorded Time 96818 codeine medicatio n headache Not available Not available 01/14/2023 2670 RxNorm Not Available [facility] 06:18:40 Medications Name Sig Start Date Stop Date Status Note LastModified by Organization Details LastModified Time cyclobenzap rine 10 mg tablet Take 1 tablet three times daily active Not Available Not Available No t Available amoxicillin 500 mg capsule Take 1 capsule 3 times a day by oral route for 10 days. 2024 active Not Available Not Available Not Avai lable atorvastati n 40 mg tablet TAKE 1 TABLET BY MOUTH ONCE DAILY active Not Available Not Available No t Available prednisone 10 mg tablet TAKE 1 TABLET BY MOUTH TWICE DAILY active Not Available Not Available No t Available azithromyci n 250 mg tablet TAKE 2 TABLETS BY MOUTH ON DAY 1, AND THEN TAKE 1 TABLET BY MOUTH ONCE A DAY ON DAY 2 THROUGH DAY 5 12/21 completed Not Available Not Available Not Available pravastatin 40 mg tablet TAKE TWO TABLETS BY MOUTH AT BEDTIME FOR CHOLESTER OL active Not Available Not Available No t Available benzonatate 200 mg capsule TAKE 1 CAPSULE BY MOUTH THREE TIMES DAILY 12/21 completed Not Available Not Available Not Available lisinopril 20 mg tablet once daily active Not Available Not Available No t Available ondansetron HCl 4 mg tablet active Not Available Not Available Not Available prednisone 20 mg tablet TAKE 2 TABLETS BY MOUTH ONCE DAILY 06/24 completed Not Available Not Available Not Available alendronate 70 mg tablet TAKE 1 TABLET BY MOUTH ONCE A WEEK active Not Available Not Available No t Available metronidazo le 500 mg tablet active Not Available Not Available Not Available Tamiflu 75 mg capsule Take 1 capsule twice a day by oral route. active Not Available Not Available No t Available tramadol 50 mg tablet Take 1 tablet(s) EVERY 6 HOURS by oral route for pain 10/22 completed Not Available Not Available Not Available cyanocobala min (vit B-12) 1,000 mcg/mL injection solution INJECT 1ML SUB-Q ONCE EVERY MONTH active Not Available Not Available No t Available hydrochloro thiazide 12.5 mg capsule TAKE 1 CAPSULE BY MOUTH ONCE DAILY active Not Available Not Available No t Available Pravachol 80 mg tablet Take 1 tablet every day by oral route. active Not Available Not Available No t Available ergocalcife rol (vitamin D2) 1,250 mcg (50,000 unit) capsule TAKE ONE CAPSULE BY MOUTH ONCE A WEEK active Not Available Not Available No t Available levofloxaci n 500 mg tablet active Not Available Not Available Not Available Ativan 0.5 mg tablet Take 2 tablets 3 times a day by oral route. 04/17 completed Not Available Not Available Not Available methylpredn isolone 4 mg tablets in a dose pack use as directed 07/19 completed Not Available Not Available Not Available lisinopril 40 mg tablet TAKE 1 TABLET BY MOUTH ONCE DAILY active Not Available Not Available No t Available cefdinir 300 mg capsule TAKE 1 CAPSULE BY MOUTH EVERY 12 HOURS 12/21 completed Not Available Not Available Not Available fluticasone propionate 50 mcg/actuati on nasal spray,suspe nsion USE TWO SPRAYS IN EACH NOSTRIL EVERY DAY 04/17 completed Not Available Not Available Not Available Prempro 0.625 mg-5 mg tablet Take 1 tablet every day by oral route. 2012 active Not Available Not Available Not Avai lable naproxen 500 mg tablet TAKE 1 TABLET BY MOUTH TWICE DAILY 06/24 completed Not Available Not Available Not Available amoxicillin 875 mg-potassiu m clavulanate 125 mg tablet TAKE 1 TABLET BY MOUTH EVERY 12 HOURS FOR 10 DAYS 12/21 completed Not Available Not Available Not Available Mucinex 600 mg tablet, extended release Take 1 tablet every 12 hours by oral route. active Not Available Not Available No t Available fluticasone propionate 01/21/ 2021 05/28 /2021 completed Not Available Not Available Not Available Calcium 600 + D(3) 04/12 completed Not Available Not Available Not Available Olux-E 0.05 % topical foam Apply 1 applicati on every day by topical route as directed. active Not Available Not Available No t Available Caltrate 600-D Plus Minerals 10/22 completed Not Available Not Available Not Available Suprep Bowel Prep Kit 17.5 gram-3.13 gram-1.6 gram oral solution DIRECTED active Not Available Not Available No t Available Fay Allergy 180 mg tablet Take 1 tablet every day by oral route. 04/17 completed Not Available Not Available Not Available Os-Gopi 500 + D3 500 mg-15 mcg (600 unit) tablet Take 1 tablet twice a day by oral route. 2021 active Not Available Not Available Not Avai lable Fluvirin 4046-4586 45 mcg (15 mcg x 3)/0.5 mL intramuscul ar suspension active Not Available Not Available N ot Available Procto-Med HC 2.5 % topical cream perineal applicator APPLY A THIN LAYER TO THE AFFECTED AREA(S) BY TOPICAL ROUTE 2-4 TIMES DAILY active Not Available Not Available No t Available Fluzone High-Dose Quad (PF) 240 mcg/0.7 mL IM syringe TO BE ADMINISTE RED BY PHARMACIS T FOR IMMUNIZAT ION active Not Available Not Available No t Available Paxlovid 150 mg-100 mg tablets in a dose pack (Renal Dose) TAKE ONE 150 MG AND ONE 100 MG TWICE DAILY FOR 5 DAYS 12/23 completed Not Available Not Available Not Available Vitals Date Recorded Body height Body mass index (BMI) Body weight Heart rate Oxygen saturation Oxygen saturation in Arterial blood by Pulse oximetry Systolic blood pressure Diastolic blood pressure Provider Name and Address Organization Details Last Updated DateTime 3 165.1 cm 23.6 kg/m2 83949.1 2 g 61 /min 98 % 98 % 120 mm[Hg] 60 mm[Hg] Annika BAGLEY - S [place] [employer] [facility] 3 11:16:40 Date Recorded Body height Body mass index (BMI) Body weight Heart rate Body temperature Oxygen saturation Oxygen saturation in Arterial blood by Pulse oximetry Systolic blood pressure Diastolic blood pressure Provider Name and Address Organization Details Last Updated DateTime 3 165.1 cm 23.4 kg/m2 25398.7 3 g 72 /min 97 [degF] 92 % 92 % 124 mm[Hg] 60 mm[Hg] Dorothea Santiago CMA [facility] [employer] [facility] 3 11:26:25 Date Recorded Body height Body mass index (BMI) Body weight Heart rate Body temperature Oxygen saturation Oxygen saturation in Arterial blood by Pulse oximetry Systolic blood pressure Diastolic blood pressure Provider Name and Address Organization Details Last Updated DateTime 4 165.1 cm 23.5 kg/m2 71331.5 2 g 66 /min 97 [degF] 93 % 93 % 120 mm[Hg] 60 mm[Hg] [facility] [employer] [facility] 4 11:05:16 Date Recorded Body height Body mass index (BMI) Body weight Heart rate Body temperature Oxygen saturation Oxygen saturation in Arterial blood by Pulse oximetry Systolic blood pressure Diastolic blood pressure Provider Name and Address Organization Details Last Updated DateTime 4 165.1 cm 23.1 kg/m2 99732.3 4 g 73 /min 97.8 [degF] 95 % 95 % 126 mm[Hg] 72 mm[Hg] INOCENCIA Bang [facility] [employer] [facility] 4 10:56:34 Date Recorded Body height Body mass index (BMI) Body weight Heart rate Body temperature Oxygen saturation Oxygen saturation in Arterial blood by Pulse oximetry Systolic blood pressure Diastolic blood pressure Provider Name and Address Organization Details Last Updated DateTime 5 165.1 cm 23.3 kg/m2 49144.9 3 g 70 /min 97 [degF] 97 % 97 % 124 mm[Hg] 72 mm[Hg] [facility] [employer] [facility] 5 11:12:03 Social History Question Answer Notes LastModified by Organizat ion Details LastModified Time Tobacco Smoking Status Current Every Day Smoker Not Available [facility] 01/14/2023 06:10:14 Do You Have An Advance Directive? No [id number] Information not available 01/14/2023 What Is Your Level Of Alcohol Consumption? Occasional [id number] Information not available 01/14/2023 What Is Your Level Of Caffeine Consumption? Heavy [id number] Information not available 01/14/2023 How Much Tobacco Do You Chew? None [id number] Information not available 01/14/2023 In The 14 Days Before Symptom Onset, Have You Had Close Contact With A Laboratory-confir med COVID-19 While That Case Was Ill? No [id number] Information not available 01/14/2023 In The 14 Days Before Symptom Onset, Have You Had Close Contact With A Person Who Is Under Investigation For COVID-19 While That Person Was Ill? No [id number] Information not available 01/14/2023 What Type Of Diet Are You Following? REGULAR [id number] Information not available 01/14/2023 Which Illicit Or Recreational Drugs Have You Used? None [id number] Information not available 01/14/2023 Do You Or Have You Ever Used E-cigarettes Or Vape? Never Used Electronic Cigarettes [id number].[id number] Information not available 01/14/2023 What Is Your Occupation? Retired MIGRATION.[id number] Information not available 01/14/2023 What Was The Date Of Your Most Recent Tobacco Screening? 05/04/2019 [id number] Information not available 01/14/2023 Do You Or Have You Ever Used Smokeless Tobacco? Never Used Smokeless Tobacco [id number].[id number] Information not available 01/14/2023 How Much Tobacco Do You Smoke? 1 PPD [id number].[id number] Information not available 01/14/2023 Do You Use Sunscreen Routinely? No [id number].[id number] Information not available 01/14/2023 How Many Years Have You Smoked Tobacco? 40 MIGRATION.[id number] 9245 Information not available 01/14/2023 Sex: Unknown Functional Status Question Answer Note LastModified by Organizat ion Details LastModified Time What is your exercise level? Moderate [id number] Information not available 01/14/2023 Mental Status None recorded. Family History Relationship Description Onset Age of this Age Resolved Age Notes LastModified by Organization Details LastModified Time Mother Coronary arterioscler osis [id number] Not available 01/14/2023 06:10:40 Father Diabetes mellitus [id number] Not available 01/14/2023 06:10:40 Brother Diabetes mellitus x3 [id number].293 [id number] Not available 01/14/2023 06:10:40 Brother Leukemia [id number] [id number] Not available 01/14/2023 06:10:40 Sister Diabetes mellitus x6 [id number].892 [id number] Not available 01/14/2023 06:10:40 Sister Alzheimer's disease [id number].246 [id number] Not available 01/14/2023 06:10:40 Notes:Mother in late 50 's form ASHD and complications. Father in late 50's from complications related to DM Two brothers one from Leukemia and DM Six sisters all Leukemia(4) DM(2) Medical History Condition Response NERVE DISEASE N BLINDNESS N RHEUMATIC FEVER N KIDNEY STONES N BLADDER PROBLEMS N MRSA N OTHER # 1 N POLIO N LUNG DISEASE/DISORDER N HISTORY OF DRUG ABUSE N RADIATION / CHEMOTHERAPY N COPD N Other # 2 N BLOOD DISEASES N EAR OR HEARING PROBLEMS N MUMPS N SHINGLES N BOWEL PROBLEMS N DEPRESSION (INCLUDING POST ) N STROKE/TIA N ULCERS N BENIGN PROSTATIC HYPERPLASIA N MEASLES N HYPOTENSION N MYOCARDIAL INFARCTION N OBESITY N GERD/NAUSEA N ANEURYSM N URINARY/BLADDER/KIDNEY PROBLEMS N CORONARY ARTERY DISEASE (CAD) N ADDICTION CONCERNS N ENDOMETRIOSIS N Impotence N USE OF BLOOD THINNERS N SKIN PROBLEMS N GASTROINTESTINAL DISORDER N PERIPHERAL VASCULAR DISEASE N MUSCLE,JOINT OR BONE PROBLEMS N GASTROINTESTINAL BLEEDING N BLOOD CLOTS N ASTHMA N CATARACTS N ERECTILE DYSFUNCTION N VARICOSITIES N GI PROBLEMS N Low Testosterone N INFERTILITY N AIDS/HIV N CHEMOTHERAPY / RADIATION N LIVER DISEASE N MALE HYPOGONADISM N HYPERTENSION Y Deficiency N TOURETTE'S N ANXIETY DISORDER N BLOOD TRANSFUSION N ANEMIA/BLOOD DISORDER N CHRONIC EAR INFECTIONS N BRONCHITIS N TUBERCULOSIS N GLAUCOMA N FOOT PROBLEM N DIVERTICULITIS N CHICKENPOX N SLEEP APNEA N INFECTIOUS DISEASE N HEART ARRHYTHMIA N PROSTATE N INSOMNIA N HIGH CHOLESTEROL / HYPERLIPIDEMIA Y HYPERTHYROIDISM N EYE PROBLEMS N EDEMA N CHRONIC PAIN SYNDROME N HYPOTHYROIDISM N CAROTID BLOCKAGE N CONSTIPATION N BACK / NECK PROBLEMS N HAVE YOU BEEN HOSPITALIZ[facility] OR [facility] IN THE PAST YEAR ? N ATHEROSCLEROSIS N BREAST PROBLEMS N DIALYSIS N ECZEMA N OSTEOPOROSIS Y ARTHRITIS N NO SIGNIFICANT PAST MEDICAL HISTORY N APPENDICITIS N DIABETES, TYPE N BAD TEETH N ENT N HEARTBURN / REFLUX N AUTISM SPECTRUM DISORDER (ASD) N HEPATITIS / LIVER DISEASE N GOUT N SLEEP DISORDER N ALZHEIMER'S DISEASE N Brain Problems N HERPES N DEMENTIA N HEADACHES/MIGRAINES N SEIZURES/EPILEPSY N VASCULAR DISEASE N PACEMAKER N Blood Disorder N DIZZINESS N HEART DISEASE/HEART PROBLEMS N KIDNEY DISEASE N MULTIPLE SCLEROSIS N CARDIAC ARRHYTHMIA N CANCER: SPECIFY N ATRIAL FIBRILLATION N Gall Stones N PULMONARY EMBOLISM N AUTOIMMUNE DISEASE N Gynecological HistoryNo gynecological history recorded. Obstetrics History GPAL:G 0 P 0 0 0 0 Immunizations Vaccine Type Date Status Note Provider Nam e and Address Organization Details Recorded Time influenza, unspecified formulation 2 completed Not Available [facility] 03/10/2023 17:51:07 zoster, unspecified formulation 8 completed Not Available [facility] 03/10/2023 17:51:07 Influenza, high-dose, trivalent, PF 3 completed Not Available [facility] 03/10/2023 17:51:07 COVID-19, mRNA, LNP-S, PF, 30 mcg/0.3 mL dose 1 completed Not Available [facility] 03/10/2023 17:51:07 Influenza, split virus, quadrivalent, preservative 1 completed Not Available [facility] 03/10/2023 17:51:07 SARS-COV-2 (COVID-19) vaccine, UNSPECIFIED 1 completed Not Available [facility] 03/10/2023 17:51:07 SARS-COV-2 (COVID-19) vaccine, UNSPECIFIED 1 completed Not Available [facility] 03/10/2023 17:51:07 pneumococcal polysaccharide PPV23 7 completed Not Available [facility] 03/10/2023 17:51:07 Pneumococcal conjugate PCV 13 6 completed Not Available [facility] 03/10/2023 17:51:07 zoster live 3 completed Not Available [facility] 03/10/2023 17:51:07 Influenza, high-dose, trivalent, PF 4 completed Not Available [facility] 03/10/2023 17:51:07 Past Encounters Encounter ID Performer Location Encounter Start Date Encounter Closed Date Diagnosis/Indication Diagnosis SNOMED-CT Code Diagnosis ICD10 Code Diagnosis Note [id number] _KAROLINA_M IGRATION_ DEFAULT_1 _1 , 04/17/2021 00:00:00 04/17/2021 10:54:49 [id number] [facility] [address] [address] 05/01/2021 00:00:00 05/01/2021 10:56:10 [id number] [facility] [address] [address] 10/30/2021 00:00:00 10/30/2021 11:05:27 [id number] [facility] [address] [address] 05/21/2022 00:00:00 05/21/2022 11:42:48 [id number] [facility] [address] [address] 10/22/2022 00:00:00 10/22/2022 11:59:37 [id number] Pollo Read MD [facility] Internal [facility] [address] [address] 02/25/2023 10:45:48 02/25/2023 11:45:33 Essential hypertension 36273300 I10 Hypercholesterolemia 136 40680 E78.00 Peripheral arterial occlusive disease 053818961 I73.9 Osteoporosis 21593454 M8 1.0 Neuropathy 021370926 G62 .9 [id number] Pollo Read MD [facility] [address] [address] 06/24/2023 10:56:52 06/24/2023 11:54:22 Essential hypertension 66311201 I10 Hypercholesterolemia 136 04883 E78.00 Peripheral arterial occlusive disease 541675777 I73.9 [id number] Pollo Read MD [facility] [address] [address] 12/23/2023 10:44:10 12/23/2023 11:31:35 Essential hypertension 48625125 I10 Hypercholesterolemia 136 09987 E78.00 Peripheral arterial occlusive disease [id number] I73.9 Vitamin D deficiency 347 39521 E55.9 [id number] Pollo Read MD [facility] [place] [address] [facility], [facility] [address] [place] [address] 06/22/2024 10:48:23 06/22/2024 11:52:43 Respiratory tract congestion and cough [id number] R05.9 Essential hypertension [id number] I10 Hypercholesterolemia 136 09383 E78.00 Osteoporosis 18839268 M8 1.0 [id number] Pollo Read MD [facility] [address] [facility] [address] [place] [address] 12/21/2024 11:01:37 12/21/2024 11:24:53 Essential hypertension [id number] I10 Hypercholesterolemia 136 80488 E78.00 Pernicious anemia 058213 09 D51.0 Osteoporosis 12256541 M8 1.0 Acute sinusitis 40417881 J01.90 Health Concerns Section Related Observation LastModified by Organization Detai ls LastModified Time None Recorded Concern Status LastModified by Organization Details LastModified Time None Recorded Advance Directives Directive N: Payers Encounter Date Sequence Insurance Name Policy Number Policy Jang Covered Member ID Jang Member ID Guarantor Name 02/25/2023 1 [employer] - [employer] - MEDICARE COMPLETE PLAN 1 (MEDICARE REPLACEMENT HMO) [id number] Malina Jewell Brennan [id number] Malina Jewell Brennan 06/24/2023 1 [employer] - [employer] - MEDICARE COMPLETE PLAN 1 (MEDICARE REPLACEMENT HMO) [id number] Malina Jewell Brennan [id number] Malina A Brennan 12/23/2023 1 [employer] - [employer] - MEDICARE COMPLETE PLAN 1 (MEDICARE REPLACEMENT HMO) [id number] Malina Jewell Brennan [id number] Malina A Brennan 06/22/2024 1 [employer] - [employer] - MEDICARE COMPLETE PLAN 1 (MEDICARE REPLACEMENT HMO) [id number] Malina Saud Brennan [id number] Malina Jewell Brennan 12/21/2024 1 [employer] - [employer] - MEDICARE COMPLETE PLAN 1 (MEDICARE REPLACEMENT HMO) [id number] Malina Jewell Brennan [id number] Malina Jewell Brennan Notes Date Note Type Note Provider Name and Address Organization Details Recorded Time 02/26/20 23 text/htm l Patient Name: Malina Saud BrennanDate Of Service: Thursday ( 02.25.2023 ): 1945 Age: 77 There has been approximately a 1 lb weight gain since 10/22/2022. This represents approximately a .7% change in weight. Weight change attributable to lifestyle changes. Vital Signs:Blood Pressure: Sitting Rt. Arm 120/60Pulse: Sitting 61 /min and RegularRespirations: 12Height 65 in or 1.7 mWeight 142 lb or 64.4 kgBMI 23.6Temperature: 97 F or 36.1 CPulse Oximetry: 98 % at rest on no oxygen Chief Complaint: Addressed in HPI Problems or conditions discussed in the HPI were the only ones reviewed during the encounter.Only social and family history addressed in the HPI were reviewed during this encounter. Attendant(s): None Constitutional and Systemic Symptoms: none Medication Reconciliation: from medication list. History of Present Illness #1. Essential Hypertension: Stage: Stage I Interval Neurological Complaints no headaches, dizziness, weakness, visual changes and ataxia. No shortness of breath, orthopnea or cardiovascular symptoms. No other symptoms related to end organ damage. Pressure has been under excellent control. Currently normal. No other end organ symptoms or findings. Therapy reviewed regarding management of hypertension and includes salt restriction and Lisinopril. #2. Type II Hypercholesterolaemia: Currently taking medication and tolerating well. No interval complaints of any muscle pain or arthralgia. No significant liver changes with medications. Last lipid panel: fair control. Therapy reviewed regarding treatment of cholesterol management and include diet and Atorvastatin Calcium. #3. Hx of peripheral vascular disease. There has been no increase in intensity, severity or duration of claudication symptoms. Exertional capacity has remained essentially unchanged. Is able to walk one block without developing any claudication. No rest pain noted. #4. osteoporosis. No new complaints of any additional back,hip or other musculoskeletal complaints related to the osteoporosis. No hx of any recent trauma. Currently taking OsCal-D and Fosamax. Has has had a recent DEXA scan done within the last year. The FRAX Score for Hip Fracture is NA hx osteoporosis FRAX score for major fractures NA hx of osteoporosisMedication List Reviewed and Reconciled 3Cyanocobalamin 1 MG/ ML (INJECTABLE - INJECTION) 1 Cc MonhtlyAtorvastatin Calcium 40 MG One HsCaltrate Plus As DirectedLisinopril 40 MG (TABLET - ORAL) One Daily For HypertensionFosamax 70 MG (TABLET - ORAL) WeeklyADRs List Reviewed 02/25/2023odeine HeadacheFosamax Leg CrampsVaccination and Qjspvuoxmyyq8951-42 Pccsavcuo7533-16 Covid Jesxen3466-97 Sewaogiw8353-28 Pneumovax 204750-90 Prevnar 638853-28 Vitamin N48Fjzgooaq HistoryLt. Knee Arthroscopic Surgery, Left CataractPreventative Testing Confirmed by Our Nymfmqg3205/26/2022 ALBUMIN 4.4 G/DL11/11/2021 MAMMOGRAM DEXA SCAN06/24/2021 COLONOSCOPY LDCT HAIC 5.9 % OF TOTAL HGB H012/16/2018 CT THORAXSocial HistorySmokes one pack of cigarettes daily for approximately 39years. Drinks socially. Works in office.Family HistoryMother in late 50's form ASHD and complications.Father in late 50's from complications related to DMTwo brothers one from Leukemia and DMSix sisters all Leukemia(4) DM(2) Pollo Read MD [address] [address], [place], [address], [facility] [employer] 02/25/2023 11:34:20 06/24/20 23 text/htm l Patient Name: Malina Jackte Of Service: Thursday ( 06.24.2023 ): 1945 Age: 77 There has been approximately a 1.5 lb weight loss since 02/25/2023. This represents approximately a 1.1% change in weight. Weight change attributable to lifestyle changes. Vital Signs:Blood Pressure: Sitting Rt. Arm 124/60Pulse: Sitting 72 /min and RegularRespirations: 12Height 65 in or 1.7 mWeight 140.5 lb or 63.7 kgBMI 23.4Temperature: 97 F or 36.1 CPulse Oximetry: 92 % at rest on no oxygen Chief Complaint: Addressed in HPI Problems or conditions discussed in the HPI were the only ones reviewed during the encounter.Only social and family history addressed in the HPI were reviewed during this encounter. Attendant(s): None Constitutional and Systemic Symptoms: none Medication Reconciliation: from medication list. History of Present Illness #1. Essential Hypertension: Stage: Stage I Interval Neurological Complaints no headaches, dizziness, weakness, visual changes, ataxia, aphasia and apraxia. No shortness of breath, orthopnea or cardiovascular symptoms. No other symptoms related to end organ damage. Pressure has been under excellent control. Currently normal. No other end organ symptoms or findings. Therapy reviewed regarding management of hypertension and includes Hydrochlorothiazide and Lisinopril. #2. Type II Hypercholesterolaemia: Currently taking medication and tolerating well. No interval complaints of any muscle pain or arthralgia. No significant liver changes with medications. Last lipid panel: fair control. Therapy reviewed regarding treatment of cholesterol management and include diet and Atorvastatin Calcium. #3. Hx of peripheral vascular disease. There has been no increase in intensity, severity or duration of claudication symptoms. Exertional capacity has remained essentially unchanged. Is able to walk one block without developing any claudication. No rest pain noted.Medication List Reviewed and Reconciled 3Cyanocobalamin 1 MG/ ML (INJECTABLE - INJECTION) 1 Cc MonhtlyAtorvastatin Calcium 40 MG One HsCaltrate Plus As DirectedLisinopril 40 MG (TABLET - ORAL) One Daily For HypertensionFosamax 70 MG (TABLET - ORAL) WeeklyHydrochlorothiazide 12.5 MG CAPSULE BidADRs List Reviewed 3Codeine HeadacheFosamax Leg CrampsVaccination and Tcjicazoemdz7587-25 Cyhhqbedk1263-01 Covid Qcands9344-15 Ctlxxnwt8565-25 Pneumovax 439911-46 Prevnar 549269-52 Vitamin B40Oafpckgy HistoryLt. Knee Arthroscopic Surgery, Left CataractPreventative Testing Confirmed by Our Prvytqf0603/05/2023 MAMMOGRAM /10/2023 ALBUMIN 4.5 G/DL 11/11/2021 DEXA SCAN06/24/2021 COLONOSCOPY /09/2020 LDCT /09/2019 HAIC 5.9 % OF TOTAL HGB 12/16/2018 CT THORAXSocial HistorySmokes one pack of cigarettes daily for approximately 39years. Drinks socially. Works in office.Family HistoryMother in late 50's form ASHD and complications.Father in late 50's from complications related to DMTwo brothers one from Leukemia and DMSix sisters all Leukemia(4) DM(2) Pollo Read MD [address] [facility], [address], [place], [address], [place] [facility] [place] [employer] 06/24/2023 11:49:42 12/23/19 24 text/htm l Patient Name: Malina RosenbaumtDate Of Service: Thursday ( 12.23.2023 ): 1945 Age: 78 There has been approximately a .5 lb weight gain since 06/24/2023. This represents approximately a .4% change in weight. Weight change attributable to lifestyle changes. Vital Signs:Blood Pressure: Sitting Rt. Arm 120/120Pulse: Sitting 60 /min and RegularRespiratory Rate: 12Height 65 in or 1.7 mWeight 141 lb or 64.0 kgBMI 23.5Temperature: 97 F or 36.1 CPulse Oximetry: 93 % at rest on no oxygen Chief Complaint: Addressed in HPI Problems or conditions discussed in the HPI were the only ones reviewed during the encounter.Only social and family history addressed in the HPI were reviewed during this encounter. Attendant(s): NoneConstitutional and Systemic Symptoms:none Medication Reconciliation: from medication list. Mhcrksullln06/16/2023: Low-dose CT scan of the chest showed ground-glass nodular opacities. Largest measuring 1.3 cm in left upper lobe increased in size compared to the prior exam based on size these are characterized as benign lung lesions rads 2. Repeat scan in one year. History of Present Illness #1. Essential Hypertension: Stage: Stage I Interval Neurological Complaints no headaches, dizziness, weakness, visual changes, ataxia, aphasia and apraxia. No shortness of breath, orthopnea or cardiovascular symptoms. No other symptoms related to end organ damage. Pressure has been under excellent control. Currently normal. No other end organ symptoms or findings. Therapy reviewed regarding management of hypertension and includes salt restriction and Hydrochlorothiazide and Lisinopril. #2. Type II Hypercholesterolaemia: Currently taking medication and tolerating well. No interval complaints of any muscle pain or arthralgia. No significant liver changes with medications. Last lipid panel: fair control. Therapy reviewed regarding treatment of cholesterol management and include diet and Atorvastatin Calcium. #3. Hx of peripheral vascular disease. There has been no increase in intensity, severity or duration of claudication symptoms. Exertional capacity has remained essentially unchanged. Is able to walk one block without developing any claudication. No rest pain noted. Active Medication ListCyanocobalamin 1 MG/ ML (INJECTABLE - INJECTION) 1 Cc MonhtlyAtorvastatin Calcium 40 MG One HsCaltrate Plus As DirectedLisinopril 40 MG (TABLET - ORAL) One Daily For HypertensionFosamax 70 MG (TABLET - ORAL) WeeklyHydrochlorothiazide 12.5 MG CAPSULE Bid Adverse Drug Reactions ReviewedCodeine HeadacheFosamax Leg Cramps Vaccination and Oealihojpcyb6753-88 Srvesinci1368-96 Covid Efyeci7570-56 Kwzimflxl9486-39 Prevnar 13 Nv4306-61 Vitamin B12 Surgical Dqrisyw1449-51 Lt. Knee Arthroscopic Dalyfgh3758-67 Left Cataract Preventative Testing Confirmed by Our Pdyetvq1707/01/2023 LDCT / MAMMOGRAM /10/2023 ALBUMIN 4.5 G/DL 11/11/2021 DEXA SCAN06/24/2021 COLONOSCOPY HAIC 5.9 % OF TOTAL HGB H012/16/2018 CT THORAX Social HistorySmokes one pack of cigarettes daily for approximately 39years. Drinks socially. Works in office. Family HistoryMother in late 50's form ASHD and complications.Father in late 50's from complications related to DMTwo brothers one from Leukemia and DMSix sisters all Leukemia(4) DM(2) Pollo Read MD [address] [facility], [facility] [address], [place], [address], [place] [facility] [employer] 12/23/2023 11:28:20 06/22/20 24 text/htm l Patient Name: Malina Jewell BrennanDate Of Service: Thursday ( 06.22.2024 ): 1945 Age: 78 There has been approximately a 2 lb weight loss since 12/23/2023. This represents approximately a 1.4% change in weight. Weight change attributable to lifestyle changes. Vital Signs:Blood Pressure: Sitting Rt. Arm 124/72Pulse: Sitting 73 /min and RegularRespiratory Rate: 14Height 65 in or 1.7 mWeight 139 lb or 63.0 kgBMI 23.1Temperature: 97.8 F or 36.6 CPulse Oximetry: 95 % at rest on no oxygen Chief Complaint: Addressed in HPI Problems or conditions discussed in the HPI were the only ones reviewed during the encounter.Only social and family history addressed in the HPI were reviewed during this encounter. Attendant(s): NoneConstitutional and Systemic Symptoms:none Medication Reconciliation: from medication list. Bbiahgymvcg88/16/2023: Low-dose CT scan of the chest showed ground-glass nodular opacities. Largest measuring 1.3 cm in left upper lobe increased in size compared to the prior exam based on size these are characterized as benign lung lesions rads 2. Repeat scan in one year. History of Present Illness #1. Essential Hypertension: Stage: Stage I Interval Neurological Complaints no headaches, dizziness, weakness, visual changes, ataxia, aphasia and apraxia. No shortness of breath, orthopnea or cardiovascular symptoms. No other symptoms related to end organ damage. Pressure has been under excellent control. Currently normal. No other end organ symptoms or findings. Therapy reviewed regarding management of hypertension and includes salt restriction and Hydrochlorothiazide and Lisinopril. #2. Type II Hypercholesterolaemia: Currently taking medication and tolerating well. No interval complaints of any muscle pain or arthralgia. No significant liver changes with medications. Last lipid panel: excellent control. Therapy reviewed regarding treatment of cholesterol management and include diet and Atorvastatin Calcium. #3. osteoporosis. No new complaints of any additional back,hip or other musculoskeletal complaints related to the osteoporosis. No hx of any recent trauma. Currently taking OsCal-D and Fosamax. Has no DEXA scan for more than 1.5 years. The FRAX Score for Hip Fracture is NA hx osteoporosis FRAX score for major fractures NA hx of osteoporosis Active Medication ListCyanocobalamin 1 MG/ ML (INJECTABLE - INJECTION) 1 Cc MonhtlyAtorvastatin Calcium 40 MG One HsCaltrate Plus As DirectedLisinopril 40 MG (TABLET - ORAL) One Daily For HypertensionFosamax 70 MG (TABLET - ORAL) WeeklyHydrochlorothiazide 12.5 MG CAPSULE Bid Adverse Drug Reactions ReviewedCodeine HeadacheFosamax Leg Cramps Vaccination and Plhivvqqhlmy7413-94 Rlgskwpkt4921-68 Covid Gtnkhh7610-89 Ialpcwhvl4139-25 Prevnar 13 Nt6879-17 Vitamin B12 Surgical Vrponld8693-54 Lt. Knee Arthroscopic Tgzxzey9714-90 Left Cataract Preventative Testing( ) 12/23/2023 Albumin 4.4 G/DL( ) 07/01/2023 LDCT 07/01/2024( ) 03/05/2023 Mammogram 03/05/2025(X) 11/11/2021 DEXA Scan 11/11/2023( ) 06/24/2021 Colonoscopy 06/24/2031( ) 05/26/2019 HAIC 5.9 % OF TOTAL HGB H( ) 12/16/2018 CT Thorax Social HistorySmokes one pack of cigarettes daily for approximately 39years. Drinks socially. Works in office. Family HistoryMother in late 50's form ASHD and complications.Father in late 50's from complications related to DMTwo brothers one from Leukemia and DMSix sisters all Leukemia(4) DM(2) TEST RESULT RANGE UNITSCBC/COMPLETE BLD COUNT W/DIFF Date: 12/23/2023WHITE BLOOD CELLS 5.8 4.2-10.8 X10'3/ULHEMOGLOBIN 12.7 12.0-15.6 G/DLHEMATOCRIT 38.6 35.7-45.7 %PLATELETS 314 150-400 X10'3/ULCOMPREHENSIVE METABOLIC PANEL Date: 12/23/2023SODIUM 139 137-145 MMOL/LPOTASSIUM 3.9 3.5-5.1 MMOL/LGLUCOSE 104 70-99 MG/DLBUN 14 8-19 MG/DLCREATININE 0.89 0.66-1.25 MG/DLGFR >60ALKALINE PHOSPHATASE 98 38-126 U/LALANINE AMINOTRANSFERASE 21 0-35 U/LASPARTATE AMINOTRANSFERASE 30 15-37 U/LBILIRUBIN, TOTAL 1.10 0.20-1.30 MG/DLLIPID PANEL Date: 12/23/2023HOLESTEROL 147 140-199 MG/DLTRIGLYCERIDES 129 0-150 MG/DLHDL CHOLESTEROL 52 40- MG/DLLDL CHOLESTEROL, CALCULATED 69 0-130 MG/DL Pollo Read MD [address] [facility], [facility] [address], [place], [address], [facility] [employer] [facility] 06/22/2024 11:50:31 12/21/19 25 text/htm l Patient Name: Malina AminDate Of Service: Thursday ( 12.21.2024 ): 1945 Age: 79 Vital Signs:Blood Pressure: Sitting Rt. Arm 124/72Pulse: Sitting 70 /min and RegularRespiratory Rate: 16Height 65 in or 1.7 mWeight 140 lb or 63.5 kgBMI 23.3Temperature: 97 F or 36.1 CPulse Oximetry: 97 % at rest on no oxygen Chief Complaint: Addressed in HPI Problems or conditions discussed in the HPI were the only ones reviewed during the encounter.Only social and family history addressed in the HPI were reviewed during this encounter. Attendant(s): NoneConstitutional and Systemic Symptoms:none Medication Reconciliation: from medication list. Ulmwumstqkg00/16/2023: Low-dose CT scan of the chest showed ground-glass nodular opacities. Largest measuring 1.3 cm in left upper lobe increased in size compared to the prior exam based on size these are characterized as benign lung lesions rads 2. Repeat scan in one year. History of Present Illness #1. Essential Hypertension: Stage: Stage I Interval Neurological Complaints no headaches, dizziness, weakness, visual changes, ataxia, aphasia and apraxia. No shortness of breath, orthopnea or cardiovascular symptoms. No other symptoms related to end organ damage. Pressure has been under excellent control. Currently normal. No other end organ symptoms or findings. Therapy reviewed regarding management of hypertension and includes salt restriction and Hydrochlorothiazide and Lisinopril. #2. Type II Hypercholesterolaemia: Currently taking medication and tolerating well. No interval complaints of any muscle pain or arthralgia. No significant liver changes with medications. Last lipid panel: fair control. Therapy reviewed regarding treatment of cholesterol management and include diet and Atorvastatin Calcium. #3. History of pernicious anemia. No interval complaints of any progressive numbness, tingling, weakness or gait disturbance. #4. osteoporosis. No new complaints of any additional back,hip or other musculoskeletal complaints related to the osteoporosis. No hx of any recent trauma. Currently taking OsCal-D and Fosamax. Has has had a recent DEXA scan done within the last year. The FRAX Score for Hip Fracture is NA hx osteoporosis FRAX score for major fractures NA hx of osteoporosis #5. Sinus Infection : Complaining of nasal congestion with associated low grade fever. Some pressure over the maxillary sinuses and drainage of purulent material. Low grade temp. This has been going on for five days. No shortness of breath or other cardiopulmonary symptoms. Active Medication ListCyanocobalamin 1 MG/ ML (INJECTABLE - INJECTION) 1 Cc MonhtlyAtorvastatin Calcium 40 MG One HsCaltrate Plus As DirectedLisinopril 40 MG (TABLET - ORAL) One Daily For HypertensionFosamax 70 MG (TABLET - ORAL) WeeklyHydrochlorothiazide 12.5 MG CAPSULE Bid Adverse Drug Reactions ReviewedCodeine HeadacheFosamax Leg Cramps Vaccination and Immunization(X) 2022-07 INFLUENZA( ) 2009-12 VITAMIN B12( ) 2016-10 PREVNAR 13 GC(X) 2017-10 PNEUMOVAX PREVNAR 20 Needed( ) 2017-10 SHINGRIX(X) 2021-07 COVID [employer] [facility] Nvfjkfj1829-55 Lt. Knee Arthroscopic Tgmxbgn2396-14 Left Cataract Preventative Testing( ) 07/28/2024 Mammogram 07/28/2026( ) 07/28/2024 LDCT 07/28/2025( ) 07/28/2024 DEXA Scan 07/28/2026( ) 06/22/2024 Albumin 4.3 G/DL( ) 06/24/2021 Colonoscopy 06/24/2031( ) 05/26/2019 HAIC 5.9 % OF TOTAL HGB H( ) 12/16/2018 CT Thorax Social HistorySmokes one pack of cigarettes daily for approximately 39years. Drinks socially. Works in office. Family HistoryMother in late 50's form ASHD and complications.Father in late 50's from complications related to DMTwo brothers one from Leukemia and DMSix sisters all Leukemia(4) DM(2) TEST RESULT RANGE UNITSCBC/COMPLETE BLD COUNT W/DIFF Date: 06/22/2024WHITE BLOOD CELLS 5.5 4.2-10.8 X10'3/ULHEMOGLOBIN 12.7 12.0-15.6 G/DLHEMATOCRIT 38.5 35.7-45.7 %PLATELETS 359 150-400 X10'3/ULCOMPREHENSIVE METABOLIC PANEL Date: 06/22/2024SODIUM 138 137-145 MMOL/LPOTASSIUM 3.9 3.5-5.1 MMOL/LGLUCOSE 110 70-99 MG/DLBUN 16 8-19 MG/DLCREATININE 1.13 0.66-1.25 MG/DLGFR 47ALKALINE PHOSPHATASE 99 38-126 U/LALANINE AMINOTRANSFERASE 22 0-35 U/LASPARTATE AMINOTRANSFERASE 28 15-37 U/LBILIRUBIN, TOTAL 1.30 0.20-1.30 MG/DLLIPID PANEL Date: 4CHOLESTEROL 150 140-199 MG/DLTRIGLYCERIDES 182 0-150 MG/DLHDL CHOLESTEROL 45 40- MG/DLLDL CHOLESTEROL, CALCULATED 69 0-130 MG/DL Pollo Read MD [address] [facility], [facility] [address], [place], [address], [place] [facility] 12/21/2024 11:18:22 OBGyn Episode No OBEpisode recorded.
--- OUTSIDE RECORDS SUMMARY | 2024-12-23 09:22 | XMS_ITS | Continuity of Care Document ---
Author Organization [facility] Address [id number] [place] [address] [place] [address] Phone Care Team Providers Care Geophysical Laboratory Director Name Role Phone [facility] Unavailable Unavail able Eder Perkins Unavailable Unavailable [...] Diagnoses Date Provider Providers Copied on Encounter [facility], [address] [place] [address] [address], [place], [place], [id number], [place] tel:[phone] SEC [facility] No Information 0 [facility] . [address] [facility], [facility] [address], [place], [id number], [place]. tel:[phone] Referring Provider: Herman Jewell, [address] [place] [address] [address], [place], [address]. tel:[phone] sulting Provider: Eder Perkins, [facility], [place], [address]. tel:[phone] [facility], [address], [place], [place], [id number], [place] tel:[phone] SEC [facility] No Information 0 Pablo Sutton. [address] [facility] [address], [place], [place], [facility], . tel:[phone] Referring Provider: Milo Rogers, [address] [facility] [address], [place], [address]. tel:[phone] [facility], [address] [place] [address] [address], [place], [place], [id number], tel:[phone] SEC [facility] No Information 0 Pablo Sutton. [facility] [address], [address], [place], [place], [facility], . tel:[phone] Referring Provider: Milo Rogers, [facility] [address], [place], [address]. tel:[phone] [facility], [address] [place] [address] [address], [place], [place], [id number], tel:[phone] [facility] No Information 0 Pablo Sutton. [address] [place], [place] [address], [address], [place], [place], [facility], . tel:[phone] Referring Provider: Milo Rogers, [facility] [address], [place], [address]. tel:[phone] Office/outpat ient Visit, [facility], [address] [place] [address] [address], [place], [place], [id number], tel:[phone] SEC [facility] No Information 0 Pablo Sutton. [facility] [address], [address], [place], [place], [facility], . tel:[phone] Referring Provider: Herman Jewell, [facility] [address], [place], [place], [facility]. tel:[phone] Family History Family Member Type Diagnosis Age At Onset No Information Payers Payer name Insurance type Covered republican ID Authoriza tion(s) No Information Social History [...]
[2024-12-23 09:25] LABS: Basophils Absolute Auto 0.1 K/mm3 (0.0-0.1); Basophils Percent Auto 1.4 % (0.2-1.2); Eosinophils Absolute Auto 0.2 K/mm3 (0-0.3); Eosinophils Percent Auto 2.4 % (0-4.4); Hematocrit 36.5 % (37.0-47.0); Hemoglobin 12.1 g/dL (12.0-15.0); Immature Granulocyte Absolute 0.01 K/mm3 (0.00-0.031); Immature Granulocyte Percent A 0.2 % (0-0.5); Lymphocytes Absolute Auto 1.79 K/mm3 (0.9-3.2); Lymphocytes Percent Auto 28.4 % (18.3-44.2); Mean Corpuscular HGB Conc 33.2 g/dl (32-36); Mean Corpuscular Volume 90.3 fl (80-100); Mean Platelet Volume 11.1 fl (7.4-10.4); Monocytes Absolute Auto 0.6 K/mm3 (0.1-0.6); Monocytes Percent Auto 9.2 % (2.6-8.5); Neutrophils Absolute Auto 3.7 K/mm3 (1.3-6.7); Neutrophils Percent Auto 58.4 % (45.5-73.1); Platelet Count Result 279 k/mm3 (150-375); Red Blood Count 4.04 M/mm3 (4.2-5.4); Red Cell Distribution Width 13.2 % (11.5-14.5); White Blood Count 6.3 K/mm3 (4.5-10.0)
[2024-12-23 10:07] LABS: Thyroid Stimulating Hormone 0.672 uIU/mL (0.465-4.680)
== END 2024-12-23 09:01 | disposition home or self-care (01) ==
LOC: ANHLAB 09:02
PROVIDERS: PCP Internal Medicine; Visit Provider Internal Medicine
DX: E78.00 Pure hypercholesterolemia, unspecified (principal); D51.0 Vitamin B12 deficiency anemia due to intrinsic factor deficiency
CPT/HCPCS: 36415; 82607; 84443; 85025

== ENCOUNTER 2025-07-12 09:35 | Outpatient (CLI) | payer MEDICARE, SELFPAY ==
--- OUTSIDE RECORDS SUMMARY | 2010-08-02 19:00 | XMS_ITS | Continuity of Care Document ---
Author Organization Located within [facility] Address [id number] [place] [address] [place] [address] Phone Care Team Providers Care Director Manufacturing Engineering Name Role Phone [facility], [facility] Unavailable Unavail able Eder Perkins Unavailable Unavailable Procedures Procedure Date Progressive Lens, Plastic Frames Deluxe Tint Photochromatic, Plastic Anti-reflective Coating Post-op Follow-up Visit Post-op Follow-up Visit Remove Cataract, Insert Lens Office/outpatient Visit, New Echo Exam Of Eye Advance Directives Directive Yes / No Effective Date File Name No Information Encounters Encounter Description Practice Location Reason(s) For Visit Diagnoses Date Provider Providers Copied on Encounter Located within [facility], [address] [place] [address] [address], [place], [place], [id number], [place] tel:[phone] SEC [facility] No Information 0 [facility] . [address] [facility], [facility] [address], [place], [id number], [place]. tel:[phone] Referring Provider: Herman Jewell, [address] [place] [address] [address], [place], [address]. tel:[phone] sulting Provider: Eder Perkins, [facility], [place], [address]. tel:[phone] Located within [facility], [address], [place], [place], [id number], [place] tel:[phone] [facility] No Information 0 Pablo Sutton. [address] [facility], [place], [place], [facility], . tel:[phone] Referring Provider: Milo Rogers, [address] [facility] [address], [place], [address]. tel:[phone] Located within [facility], [address] [place] [address] [address], [place], [place], [id number], tel:[phone] [facility] No Information 0 Pablo Sutton. [facility] [address], [address], [place], [place], [facility], . tel:[phone] Referring Provider: Milo Rogers, [facility] [address], [place], [address]. tel:[phone] Located within [facility], [address] [place] [address] [address], [place], [place], [id number], tel:[phone] [facility], [facility] No Information 0 Pablo Sutton. [address] [place], [place] [address], [address], [place], [place], [facility], . tel:[phone] Referring Provider: Milo Rogers, [facility] [address], [place], [address]. tel:[phone] Office/outpat ient Visit, [facility], [address] [place] [address] [address], [place], [place], [id number], tel:[phone] [facility] No Information 0 Pablo Sutton. [facility] [address], [address], [place], [place], [facility], . tel:[phone] Referring Provider: Herman Jewell, [facility] [address], [place], [place], [facility]. tel:[phone] Family History Family Member Type Diagnosis Age At Onset No Information Payers Payer name Insurance type Covered constitution party ID Authoriza tion(s) No Information Social History Type Description Quantity Date Captured Comments Sex Female Smoking Status No Information Chief Complaint And Reason For Visit No Information Reason For Referral Reason For Referral No Information History Of Present Illness Encounter Date Complaint History Of Prese nt Illness No Information Functional Status Date Functional Assessmen t No Information Instructions Date Instruction Additional Infor mation No Information Assessments Type Assessment Date No Information Patient Care Teams Name Effective Dates (start - stop) Status Members No Information
--- OUTSIDE RECORDS SUMMARY | 2025-07-12 09:53 | XMS_ITS | Clinical Summary ---
Author Organization [facility] Address [address] [place] [address] Care Team Providers Care Coordinator [employer] Name Role Phone Unavailable Primary Care Provider [...] Health Maintenance Due Date Last Done Comments Hepatitis C Virus (HCV) Screening 1945 TdaP Immunization 1945 Pneumococcal Immunization (50+ years) (1 of 1 - PCV) 1996 Respiratory Syncytial Virus (RSV) Immunization (Adult) (1 - 1-dose 75+ series) 2021 SARS-COV-2 Immunization ( - 2023- season) 2024 08/14/2021, 02/06/2021 Influenza Immunization (#1) 2025 09/0 05/2021, 08/11/2017, 07/31/2016, Additional history exists Zoster Immunization Completed 04/10/2018, 01/11/2018, 10/14/2013 Hepatitis B Immunization Aged Out No longer eligible based on patient's age to complete this topic Human Papillomavirus (HPV) Immunization Aged Out No longer eligible based on patient's age to complete this topic Meningococcal Immunization (ACWY) Aged Out No longer eligible based on patient's age to complete this topic Rotavirus Immunization Aged Out No lo nger eligible based on patient's age to complete this topic
[2025-07-12 10:23] LABS: Hematocrit 38.1 % (37.0-47.0); Hemoglobin 12.6 g/dL (12.0-15.0); Immature Granulocyte Percent A 0.2 % (0-0.5); Lymphocytes Absolute Auto 0.81 K/mm3 (0.9-3.2); Mean Corpuscular HGB Conc 33.1 g/dl (32-36); Mean Corpuscular Hemoglobin 29.6 pg (26-34); Mean Corpuscular Volume 89.4 fl (80-100); Nucleated Red Blood Cells Absolute Auto 0.000 K/mm3 (0.0-0.012); Nucleated Red Blood Cells Perc 0.0 % (0.0-0.2); Platelet Count Result 291 k/mm3 (150-375); Red Blood Count 4.26 M/mm3 (4.2-5.4); White Blood Count 4.5 K/mm3 (4.5-10.0)
[2025-07-12 10:48] LABS: Alanine Aminotransferase 23 U/L (6-35); Albumin Level 4.3 g/dL (3.5-5.1); Alkaline Phosphatase 87 U/L (38-126); Anion Gap 7 mmol/L (4-12); Aspartate Amino Transferase 33 U/L (14-36); Bilirubin,Total 1.4 mg/dL (0.2-1.3); Blood Urea Nitrogen 16 mg/dL (7-17); Calcium 9.6 mg/dL (8.4-10.2); Carbon Dioxide 29 mmol/L (22-30); Chloride 102 mmol/L (98-107); Cholesterol 149 mg/dL (0-200); Estimated Glomerular Filt Rate 56; Glucose 107 mg/dL (65-110); HDL Direct 40 mg/dL; Potassium 3.6 mmol/L (3.4-5.0); Sodium 138 mmol/L (137-145); Total Protein 7.7 g/dL (6.3-8.2); Triglycerides 215 mg/dL (<150)
[2025-07-12 11:06] LABS: Free T4 Free Thyroxine 0.90 ng/dL (0.78-2.19)
[2025-07-12 11:23] LABS: Thyroid Stimulating Hormone 1.160 uIU/mL (0.465-4.680)
== END 2025-07-12 09:36 | disposition home or self-care (01) ==
PROVIDERS: PCP Internal Medicine; Visit Provider Internal Medicine
DX: E55.9 Vitamin D deficiency, unspecified (principal); I10 Essential (primary) hypertension
CPT/HCPCS: 36415; 80053; 80061; 82306; 84439; 84443; 85025